=== PATIENT | male | born 1950 | race Hispanic/Latino ===

== ENCOUNTER 2018-05-29 11:21 | Inpatient (IN) | payer OTHER ==
--- OUTSIDE RECORDS SUMMARY | 2018-05-29 11:24 | XMS REPORT | Clinical Summary ---
:1950 Author Organization [facility] Address [address] [place] [address] Care Team Providers Name Role Phone Arsh Stokes BrittanyClarice GUEVARA Primary Care Provider Allergies Active Allergy Reactions Severity Noted Date Comments No Known Drug Allergies 08/25/2015 Medications Medication Sig Dispensed Refills Start Date End Date Status furosemide (LASIX) Take 40 mg by 0 Active 40 MG tablet mouth 2 (two) times a day. VIT D3-VIT Take 1 tablet 0 Active [id number] by mouth ORAL daily. levothyroxine Take 100 mcg 0 Active (SYNTHROID, by mouth every LEVOTHROID) 100 MCG morning. tablet atorvastatin Take 80 mg by 0 Active (LIPITOR) 80 MG mouth daily. tablet terazosin (HYTRIN) Take 5 mg by 0 Active 5 MG capsule mouth nightly. metoprolol Take 25 mg by 0 Active succinate XL mouth nightly. (TOPROL-XL) 25 mg 24 hr tablet pantoprazole Take 40 mg by 0 Active (PROTONIX) 40 MG EC mouth daily. tablet calcitriol Take 0.25 mcg 0 Active (ROCALTROL) 0.25 by mouth MCG capsule daily. Given in dialysis sevelamer (RENVELA) Take 800 mg by 0 Active 800 mg tablet mouth 3 (three) times a day with meals. insulin detemir Inject 16 0 Active U-100 (LEVEMIR) 100 Units under unit/mL injection the skin nightly. colchicine 0.6 mg Take 0.6 mg by 0 Active tablet mouth daily. CALCIUM ACETATE Take 1 tablet 0 09/09/2017 Discontinued ORAL by mouth 3 (three) times a day. FERROUS SULFATE Take 1 tablet 0 09/09/2017 Discontinued ORAL by mouth daily. Given at dialysis lisinopril Take 10 mg by 0 08/10/2017 Discontinued (PRINIVIL,ZESTRIL) mouth daily. 5 MG tablet SODIUM BICARBONATE Take 650 mg by mouth 3 (three) times a day. 650 mg tablet 0 09/09/2017 Discontinued ORAL HYDRALAZINE HCL Take 100 mg by 0 11/16/2017 Discontinued (HYDRALAZINE ORAL) mouth 3 (three) times a day. insulin detemir Inject 16 0 08/10/2017 Discontinued (LEVEMIR) 100 Units under unit/mL injection the skin every morning. cyanocobalamin, Place 5,000 0 11/16/2017 Discontinued vitamin B-12, mcg under the (VITAMIN B-12) tongue daily. 5,000 mcg tablet, sublingual acetaminophen-codei Take 1 tablet 40 tablet 0 09/09/2017 09/23/2017 ne (TYLENOL WITH by mouth every CODEINE #3) 300-30 4 (four) hours mg per tablet as needed for moderate pain for up to 14 days. acetaminophen-codei Take 1 tablet 40 tablet 0 12/10/2017 12/20/2017 ne (TYLENOL WITH by mouth every CODEINE #3) 300-30 6 (six) hours mg per tablet as needed for moderate pain for up to 10 days. acetaminophen-codei Take 1 tablet 30 tablet 0 12/12/2017 12/19/2017 ne (TYLENOL WITH by mouth every CODEINE #3) 300-30 6 (six) hours mg per tablet as needed for moderate pain for up to 7 days. Active Problems Problem Noted Date Type 2 diabetes mellitus with chronic kidney disease on chronic dialysis, 10/2017 with long-term current use of insulin End stage renal disease 10/28/2017 Overview: Added automatically from request for surgery [id number] ESRD (end stage renal disease) 2018 MWF 08/10/2017 Last Assessment & Plan: N. Patient with access needs. We gave the patient our kidney failure information sheet and discussed with them in general transplant vs. PD vs. hemodialysis. We discussed catheters vs. grafts vs. fistula s and used the informational posters to better explain the differences. We explained our general preference for fistulas because of decreased infections and increased longevity. We discussed operative complications including bleeding, thrombosis, failure of the access, swelling , steal syndrome, and need for additional procedures. Vein mapping reviewed by me. Plan for L arm AVF. Hypertension 08/10/2017 Bradycardia 08/10/2017 Overview: heart rate in 40- 50s Hypothyroidism 08/10/2017 Encounters Date Type Specialty Care Team Description 01/11/2018 Office Visit Cardiovascular Corey, ESRD (end stage Arnold, DISPENSARY TECHNICIAN renal disease) 2017 MWF (Primary Dx) 12/30/2017 Documentation Transplant Sumeet, Consent Forms Janelle (Scanned Consent For Kidney Transplant Evaluation, Pre Txp Education & ARUNA forms in Media. 12-23-2017) 12/23/2017 Hospital Encounter Transplant Kelsie Sparks MD 12/23/2017 Hospital Encounter Transplant Asked, No Pcp Grayson Mera MD 12/23/2017 Hospital Encounter Transplant Asked, No Pcp Grayson Mera MD 12/23/2017 Hospital Encounter Transplant Asked, No Pcp ESRD (end stage Grayson Mera renal disease) MD Cam (Primary Dx) 12/09/2017 Surgery Vascular Surgery Ramya Poole LEFT SECOND STAGE MD Sander BASILIC VEIN FISTULA TRANSPOSITION 12/09/2017 Anesthesia Event Vascular Surgery Jane Chandler MD 12/09/2017 Hospital Encounter General Internal Ramya Poole End stage renal - Medicine MD Sander disease 12/12/2017 12/09/2017 Hospital Encounter Radiology Ramya Poole ESRD (end stage MD Sander renal disease) 11/25/2017 Orders Only Cardiovascular Ramya Poole End stage renal MD Sander disease (Primary Dx) 11/16/2017 Telephone Transplant Teressa Loco, Referral - Kidney MA Txp (Re-Referral) 10/28/2017 Prep for Surgery Cardiovascular Ramya Poole End stage renal MD Sander disease (Primary Dx) 10/12/2017 Office Visit Cardiovascular JaimeAngyJewel, ESRD (end stage Arnold, DISPENSARY TECHNICIAN renal disease) 2017 MWF (Primary Dx) 09/09/2017 Anesthesia Event Vascular Surgery Charity Monzon MD 09/09/2017 Surgery Vascular Surgery Ramya Poole CREATION OF LEFT MD Sander ARM AV FISTULA 1st stage 09/09/2017 Hospital Encounter Vascular Surgery Ramya Poole ESRD (end stage MD Sander renal disease) 08/10/2017 Office Visit Cardiovascular Ramya Poole ESRD (end stage MD Sander renal disease) 2017 MWF (Primary Dx) 08/10/2017 Prep for Surgery Cardiovascular Estephania Chairez ESRD (end stage renal disease) (Primary Dx) 06/28/2017 Orders Only Cardiovascular Estephania Chairez ESRD (end stage renal disease) (Primary Dx) after 05/28/2017 Social History Tobacco Use Types Packs/Day Years Used Date Former Smoker Cigarettes 1 2 Quit: 1986 Smokeless Tobacco: Never Used Comments: quit 1987 Alcohol Use Drinks/Week oz/Week Comments No quit 5-6 yrs ago Sex Assigned at Date Recorded Not on file Job Start Date Occupation Industry Not on file Not on file Not on file Travel History Travel Start Travel End No recent travel history available. Last Filed Vital Signs Vital Sign Reading Time Taken Blood Pressure 104/47 01/11/2018 9:39 AM CDT Pulse 39 01/11/2018 9:39 AM CDT Temperature 36.9 C (98.4 F) 01/11/2018 9:39 AM CDT Respiratory Rate 16 12/23/2017 7:39 AM CDT Oxygen Saturation 98% 12/23/2017 7:39 AM CDT Inhaled Oxygen Concentration - - Weight 90.7 kg (200 lb) 01/11/2018 9:39 AM CDT Height 182.9 cm (6') 01/11/2018 9:39 AM CDT Body Mass Index 27.12 01/11/2018 9:39 AM CDT Plan of Treatment Health Maintenance Due Date Last Done Comments DIABETIC RETINAL EYE EXAM 1950 DIABETIC FOOT EXAM 1959 COLON CANCER SCREENING 1999 SHINGLES VACCINES (1 of 2) 1999 PNEUMOCOCCAL POLYSACCHARIDE VACCINE AGE 65 AND OVER 2014 PNEUMOCOCCAL-13 2014 INFLUENZA VACCINE 11/10/2017 Implants Implanted Type Area Sapphire Stylus Grinder Device Shelf Model / Identifier Expiration Serial / Date Lot Clip Ligtng Weck Hemoclip Plus W/ Tape Ti [facility] - [id number] Medical Left: TELEFLEX MEDICAL 04/06/2022 [id number] / Implanted: Qty: 1 on 09/09/2017 by Ramya Poole MD Clips for Arm, / Internal Use Upper [id number] Clip Ligtng Weck Hemoclip Plus W/ Tape Ti - [id number] Medical Left: WECK CLOSURE 05/03/2022 [id number] / Implanted: Qty: 2 on 09/09/2017 by Ramya Poole MD Clips for Arm, SYSTEMS / Internal Use Upper 05/03/2022 Clip Ligtng Weck Hemoclip Plus W/ Tape Ti - [id number] Medical Left: WECK CLOSURE 05/03/2022 [id number] / Implanted: Qty: 2 on 12/09/2017 by Ramya Poole MD Clips for Arm, SYSTEMS / Internal Use Upper [id number] Clip Ligtng Weck Hemoclip Plus W/ Tape Ti [facility] - [id number] Medical Left: TELEFLEX MEDICAL 09/28/2022 [id number] / Implanted: Qty: 2 on 12/09/2017 by Ramya Poole MD Clips for Arm, / Internal Use Upper [id number] Procedures Procedure Name Priority Date/Time Associated Comments Diagnosis ZZESTIMATED GFR STAT 12/12/2017 5:45 Results for this AM CDT procedure are in the results section. HC COMPLETE BLD COUNT STAT 12/12/2017 5:45 Results for this W/AUTO DIFF AM CDT procedure are in the results section. BASIC METABOLIC PANEL STAT 12/12/2017 5:45 Results for this AM CDT procedure are in the results section. POC GLUCOSE Routine 12/12/2017 5:43 Results for this AM CDT procedure are in the results section. POC GLUCOSE Routine 12/11/2017 8:48 Results for this PM CDT procedure are in the results section. POC GLUCOSE Routine 12/11/2017 5:21 Results for this PM CDT procedure are in the results section. POC GLUCOSE Routine 12/11/2017 12:20 Results for this PM CDT procedure are in the results section. POC GLUCOSE Routine 12/11/2017 7:49 Results for this AM CDT procedure are in the results section. POC GLUCOSE Routine 12/10/2017 9:17 Results for this PM CDT procedure are in the results section. POC GLUCOSE Routine 12/10/2017 5:33 Results for this PM CDT procedure are in the results section. POC GLUCOSE Routine 12/10/2017 1:02 Results for this PM CDT procedure are in the results section. POC GLUCOSE Routine 12/10/2017 11:55 Results for this AM CDT procedure are in the results section. POC GLUCOSE Routine 12/10/2017 11:37 Results for this AM CDT procedure are in the results section. ZZESTIMATED GFR STAT 12/10/2017 8:10 Results for this AM CDT procedure are in the results section. BASIC METABOLIC PANEL STAT 12/10/2017 8:10 Results for this AM CDT procedure are in the results section. HEPATITIS B SURFACE STAT 12/10/2017 8:10 Results for this ANTIGEN AM CDT procedure are in the results section. HC COMPLETE BLD COUNT STAT 12/10/2017 8:10 Results for this W/AUTO DIFF AM CDT procedure are in the results section. HEMODIALYSIS Routine 12/10/2017 12:06 AM CDT POC GLUCOSE Routine 12/09/2017 10:08 Results for this PM CDT procedure are in the results section. POC GLUCOSE Routine 12/09/2017 4:57 Results for this PM CDT procedure are in the results section. OR FL < 1 HOUR Routine 12/09/2017 4:00 ESRD (end stage Results for this PM CDT renal disease) procedure are in the results section. TRANSPOSITION, VEIN, 12/09/2017 3:00 End stage renal BASILIC, SECOND OF 2 PM CDT disease STAGES Case Notes POSSIBLE EXTENDED RECOVERY NEEDED Special Needs POSSIBLE EXTENDED RECOVERY NEEDED ANESTHESIA PERIPHERAL BLOCK Routine 12/09/2017 1:08 PM CDT Procedure Note - Jane Chandler MD - 12/09/2017 1:08 PM CDT Peripheral Block Performed by: JANE CHANDLER Authorized by: JANE CHANDLER Patient Location: Pre-op Start Time: 12/09/2017 1:11 PM End Time: 12/09/2017 1:20 PM Reason for Block: at surgeon's request Staff: Anesthesiologist: JANE CHANDLER Resident/FOOD AND BEVERAGE ASSOCIATE/AA: DONNA HOOD Performed by: Anesthesiologist Preprocedure: patient identified, IV checked, site and side verified, risks and benefits discussed, procedure verified, surgical consent complete, patient position confirmed, monitors and equipment checked, pre-op evaluation complete and site marked Time Out Performed: 12/09/2017 1:10 PM Peripheral Nerve Block: Patient Position: Sitting Prep: ChloraPrep Monitoring: Blood pressure monitoring, continuous pulse oximetry and heart rate Block Type: Brachial plexus and supraclavicular Laterality: Left Injection Technique: Single injection Procedures: ultrasound guided and nerve stimulator Ultrasound documentation: Printed/placed in chart Local Infiltration (See MAR for details): Lidocaine Needle: Needle Type: Pajunk Needle Gauge: 22 G Needle Length: 8 cm Assessment: Injection Assessment: Visualized needle/local anesthetic surrounding nerve , visualized pertinent vascular structures and nerves, needle tip visualized at all times during injection of medication, intermittent aspiration during local anesthetic administration and no symptoms of intraneural/intravenous injection Paresthesia Pain: None Heart Rate Change: No Slow Fractionated Injection: Yes Block outcome: No apparent complications PROTHROMBIN TIME WITH INR, Routine 12/09/2017 11:47 AM CDT Results for this I-STAT procedure are in the results section. POC PANEL 4 Routine 12/09/2017 11:42 AM CDT POC PANEL 4 Routine 12/09/2017 11:16 AM CDT PROTHROMBIN TIME WITH INR, Routine 12/09/2017 11:12 AM CDT Results for this I-STAT procedure are in the results section. POC GLUCOSE Routine 09/09/2017 10:34 AM CDT ANESTHESIA PERIPHERAL BLOCK Routine 09/09/2017 8:00 AM CDT Procedure Note - Jane Chandler MD - 09/09/2017 8:00 AM CDT Peripheral Block Performed by: JANE CHANDLER Authorized by: JANE CHANDLER Start Time: 09/09/2017 8:04 AM End Time: 09/09/2017 8:08 AM Reason for Block: at surgeon's request Staff: Anesthesiologist: JANE CHANDLER Resident/FOOD AND BEVERAGE ASSOCIATE/AA: CHARITY MONZON Performed by: Resident/FOOD AND BEVERAGE ASSOCIATE/AA and anesthesiologist Preprocedure: patient identified, IV checked, site and side verified, risks and benefits discussed, procedure verified, surgical consent complete, patient position confirmed, monitors and equipment checked, pre-op evaluation complete and site marked Time Out Performed: 09/09/2017 7:59 AM Peripheral Nerve Block: Patient Position: Sitting Prep: ChloraPrep and patient draped Monitoring: Blood pressure monitoring and continuous pulse oximetry Block Type: Supraclavicular Laterality: Left Injection Technique: Single injection Procedures: ultrasound guided and nerve stimulator Ultrasound documentation: Printed/placed in chart Local Infiltration (See MAR for details): Ropivacaine Loss of Twitch: 35 mA Needle: Needle Type: Pajunk Needle Gauge: 22 G Needle Length: 8 cm Assessment: Injection Assessment: Visualized needle/local anesthetic surrounding nerve , visualized pertinent vascular structures and nerves, needle tip visualized at all times during injection of medication, no symptoms of intraneural/intravenous injection and intermittent aspiration during local anesthetic administration Paresthesia Pain: None Heart Rate Change: No Slow Fractionated Injection: Yes Block outcome: No apparent complications, patient comfortable and patient tolerated procedure well CREATION, AV FISTULA 09/09/2017 8:00 AM ESRD (end stage CDT renal disease) ECG 12-LEAD Routine 09/09/2017 7:25 AM Results for this CDT procedure are in the results section. POC PANEL 4 Routine 09/09/2017 7:10 AM Results for this CDT procedure are in the results section. XR CHEST 1 VW STAT 09/09/2017 6:30 AM Results for this PORTABLE CDT procedure are in the results section. US VEIN MAPPING Routine 08/10/2017 3:20 PM ESRD (end stage Results for this UPPER EXTREMITY CDT renal disease) procedure are in BILATERAL the results section. after 05/28/2017 Results Estimated GFR (12/12/2017 5:45 AM CDT)Only the most recent of2 resultswithin the time period is included. GFR Non Af Amer 9 (A) mL/min/1.73 m2 [facility] DEPARTMENT OF PATHOLOGY AND GENOMIC MEDICINE GFR Af Amer 11 (A) mL/min/1.73 m2 [facility] DEPARTMENT OF Comment: PATHOLOGY AND GENOMIC Chronic kidney disease: <60 mL/min/1.73m2 MEDICINE Kidney failure: <15 mL/min/1.73m2 The estimated GFR is calculated from the IDMS-traceable Modification of Diet in Renal Disease Equation. The accuracy of the calculation is poor when the creatinine is normal. Calculated values >90 mL/min/1.73m2 are not reported. This equation has not been validated in children (<18 years), women, the elderly (>70 years), or ethnic groups other than Caucasians and Americans. Specimen Plasma specimen Performing Organization Address City/State/Zipcode Phone Number [facility] DEPARTMENT OF PATHOLOGY AND [address] [place] [address] [place] CBC with platelet and differential (12/12/2017 5:45 AM CDT)Only the most recent of2 resultswithin the time period is included. WBC 6.96 4.50 - 11.00 k/uL [facility] DEPARTMENT OF PATHOLOGY AND GENOMIC MEDICINE RBC 2.91 (L) 4.40 - 6.00 m/uL [facility] DEPARTMENT OF PATHOLOGY AND GENOMIC MEDICINE HGB 9.2 (L) 14.0 - 18.0 g/dL [facility] DEPARTMENT OF PATHOLOGY AND GENOMIC MEDICINE HCT 29.4 (L) 41.0 - 51.0 % [facility] DEPARTMENT OF PATHOLOGY AND GENOMIC MEDICINE MCV 101.0 (H) 82.0 - 100.0 fL [facility] DEPARTMENT OF PATHOLOGY AND GENOMIC MEDICINE MCH 31.6 27.0 - 34.0 pg [facility] DEPARTMENT OF PATHOLOGY AND GENOMIC MEDICINE MCHC 31.3 31.0 - 37.0 g/dL [facility] DEPARTMENT OF PATHOLOGY AND GENOMIC MEDICINE RDW - SD 57.9 (H) 37.0 - 55.0 fL [facility] DEPARTMENT OF PATHOLOGY AND GENOMIC MEDICINE MPV 11.3 8.8 - 13.2 fL [facility] DEPARTMENT OF PATHOLOGY AND GENOMIC MEDICINE Platelet count 122 (L) 150 - 400 k/uL [facility] DEPARTMENT OF PATHOLOGY AND GENOMIC MEDICINE Nucleated RBC 0.00 /100 WBC [facility] DEPARTMENT OF PATHOLOGY AND GENOMIC MEDICINE Neutrophils 70.0 (H) 39.0 - 69.0 % [facility] DEPARTMENT OF PATHOLOGY AND GENOMIC MEDICINE Lymphocytes 13.2 (L) 25.0 - 45.0 % [facility] DEPARTMENT OF PATHOLOGY AND GENOMIC MEDICINE Monocytes 11.8 (H) 0.0 - 10.0 % [facility] DEPARTMENT OF PATHOLOGY AND GENOMIC MEDICINE Eosinophils 4.3 0.0 - 5.0 % [facility] DEPARTMENT OF PATHOLOGY AND GENOMIC MEDICINE Basophils 0.4 0.0 - 1.0 % [facility] DEPARTMENT OF PATHOLOGY AND GENOMIC MEDICINE Immature granulocytes 0.3Comment: 0.0 - 1.0 % [facility] DEPARTMENT OF "Immature PATHOLOGY AND GENOMIC granulocytes" MEDICINE (promyelocytes, myelocytes, metamyelocytes) Specimen Blood Performing Organization Address City/State/Zipcode Phone Number [facility] DEPARTMENT OF PATHOLOGY AND [address] [place] [address] GENOMIC MEDICINE Basic metabolic panel (12/12/2017 5:45 AM CDT)Only the most recent of2 resultswithin the time period is included. Sodium 139 135 - 148 mEq/L [facility] DEPARTMENT OF PATHOLOGY AND GENOMIC MEDICINE Potassium 4.1 3.5 - 5.0 mEq/L [facility] DEPARTMENT OF PATHOLOGY AND GENOMIC MEDICINE Chloride 98 98 - 112 mEq/L [facility] DEPARTMENT OF PATHOLOGY AND GENOMIC MEDICINE CO2 24 24 - 31 mEq/L [facility] DEPARTMENT OF PATHOLOGY AND GENOMIC MEDICINE Anion gap 17@ANIO (H) 7 - 15 mEq/L [facility] DEPARTMENT OF PATHOLOGY AND GENOMIC MEDICINE BUN 54 (H) 8 - 23 mg/dL [facility] DEPARTMENT OF PATHOLOGY AND GENOMIC MEDICINE Creatinine 6.1 (H) 0.7 - 1.2 mg/dL [facility] DEPARTMENT OF PATHOLOGY AND GENOMIC MEDICINE Glucose 95 65 - 99 mg/dL [facility] DEPARTMENT OF PATHOLOGY AND GENOMIC MEDICINE Calcium 8.9 8.8 - 10.2 mg/dL [facility] DEPARTMENT OF PATHOLOGY AND GENOMIC MEDICINE Specimen Plasma specimen Performing Organization Address City/[facility] Phone Number [facility] DEPARTMENT OF PATHOLOGY AND [address] [place] [address] [employer] MEDICINE POC glucose (12/12/2017 5:43 AM CDT)Only the most recent of13 resultswithin the time period is included. POC glucose 100 (H) 65 - 99 mg/dL [facility] DEPARTMENT OF PATHOLOGY Comment: AND GENOMIC MEDICINE [facility] Notified RN Meter ID: [id number] Nursing Home Director: Irene Rader Performing Organization Address [facility] Phone Number [facility] DEPARTMENT OF PATHOLOGY AND [address] [place] [address] Hepatitis B surface antigen (12/10/2017 8:10 AM CDT) Hepatitis B surface Ag Non-reactive Non-reactive [facility] DEPARTMENT OF PATHOLOGY AND GENOMIC MEDICINE Performing Organization Address [facility] Phone Number [facility] DEPARTMENT OF PATHOLOGY AND [address] [place] [address] OR [place] < 1 Hour (12/09/2017 4:00 PM CDT) Narrative Performed At IMPRESSION: C-arm fluoroscopy under one hour was provided in the OR for [facility] the referring physician. A radiologist was not present during the procedure. Refer to the Operative report issued by the performing provider for procedure details. Location: [place] [address] OR 2 Procedure: LEFT SECOND STAGE BASILIC VEIN FISTULA TRANSPOSITION Start: 1550 End: 1600 Fluoro Time: 49 sec Dose: 10.85 mGy Tech: SW Procedure Note Interface, Radiology Results Incoming - 12/10/2017 2:14 PM CDT IMPRESSION: C-arm fluoroscopy under one hour was provided in the OR for the referring physician. A radiologist was not present during the procedure. Refer to the Operative report issued by the performing provider for procedure details. Location: [place] [address] OR 2 Procedure: LEFT SECOND STAGE BASILIC VEIN FISTULA TRANSPOSITION Start: 1550 End: 1600 Fluoro Time: 49 sec Dose: 10.85 mGy Tech: JUANA Performing Organization Address City/[facility] Phone Number [facility] [address] [place] [phone] Prothrombin time with INR, I-Stat (12/09/2017 11:47 AM CDT)Only the most recent of2 resultswithin the time period is included. POC prothrombin time 15.5 (H) 11.0 - 14.5 sec [facility] DEPARTMENT OF PATHOLOGY AND GENOMIC MEDICINE POC INR 1.3 [facility] DEPARTMENT OF Comment: PATHOLOGY AND GENOMIC The International Normalized Ratio (INR) is a therapeutic MEDICINE monitoring tool for patients who are stable on oral vitamin K antagonist therapy. An INR of 2.0-3.0 is suggested for deep vein thrombosis/pulmonary embolism. An INR of 2.5-3.5 (high dose) is suggested for some patients with mechanical heart valves) Meter ID: [id number] Nursing Home Director: Cesar Mitchell Specimen Blood Performing Organization Address [facility] Phone Number [facility] DEPARTMENT OF PATHOLOGY AND [address] [place] [phone] GENOMIC MEDICINE POC panel 4 (12/09/2017 11:42 AM CDT)Only the most recent of3 resultswithin the time period is included. POC sodium 138 135 - 148 mmol/L [facility] DEPARTMENT OF PATHOLOGY AND GENOMIC MEDICINE POC potassium 3.8 3.5 - 5.0 mmol/L [facility] DEPARTMENT OF PATHOLOGY AND GENOMIC MEDICINE POC hematocrit 33 (L) 41 - 51 % [facility] DEPARTMENT OF PATHOLOGY AND Comment: GENOMIC MEDICINE Meter ID: [id number] Nursing Home Director: Cesar Mitchell POC glucose 112 (H) 65 - 99 mg/dL [facility] DEPARTMENT OF PATHOLOGY AND GENOMIC MEDICINE Performing Organization Address [facility] Phone Number [facility] DEPARTMENT PATHOLOGY AND [address] [place] [phone] [employer] MEDICINE ECG 12 lead (09/09/2017 7:25 AM CDT) Ventricular rate 46 [facility] MUSE Atrial rate 46 [facility] MUSE QRSD interval 128 [facility] MUSE QT interval 568 [facility] MUSE QTC interval 497 [facility] MUSE P axis 1 6 [facility] MUSE QRS axis 1 86 [facility] [facility] T wave axis 33 [facility] EKG impression Sinus bradycardia with 1st degree AV block with occasional premature ventricular complexes-Right bundle branch block-Nonspecific ST and T wave abnormality-Abnormal ECG-In automated comparison with ECG o [facility] f 30-JUL-2015 07:13,-Right bundle branch block is now present- 9 :09:15 PM Performing Organization Address [facility] Phone Number [facility] [address] [place] [address] XR Chest 1 Vw Portable (09/09/2017 6:30 AM CDT) Narrative Performed At EXAMINATION:XR CHEST 1 VW PORTABLE [facility] CLINICAL HISTORY:Pre-op COMPARISON:May 31 IMPRESSION: Lungs are clear The heart remains enlarged Diffuse calcified atherosclerotic vascular disease throughout the arterial structures. Degenerative changes are present throughout the bony structures without evidence of a suspicious focal lesion. No interval change in support lines [facility]-[id number] Procedure Note Interface, Radiology Results Incoming - 09/09/2017 7:02 AM CDT EXAMINATION: XR CHEST 1 VW PORTABLE CLINICAL HISTORY: Pre-op COMPARISON: May 31 IMPRESSION: Lungs are clear The heart remains enlarged Diffuse calcified atherosclerotic vascular disease throughout the arterial structures. Degenerative changes are present throughout the bony structures without evidence of a suspicious focal lesion. No interval change in support lines [facility]-[id number] Performing Organization Address [facility] Phone Number [facility] [address] [place] [address] PV vein mapping upper extremity (08/10/2017 3:20 PM CDT) Narrative Performed At [facility] Upper Extremity Vein Mapping Duplex Report [id number] [place], [place] Pat.Name:[facility] LOPEZ [facility][id number] .Date: 08/10/2017Refer.MD:RAMYA POOLE MD Exam Time: 8:56:00 AMStudy Type:UE Vein Mapping DOBAge:1950,67Y Sex: MALE Sonogrphr: Everardo Sara, RDMS, RVT CPT - 4: 18195 Echo Event ID:[id number] Order ID:[id number] Reason for Study:Pre-op vein mapping for AV fistula creation.History of non-functioning left arm AVF.Patient currently uses right chest catheter for dialysis and is right hand dominant. Race:C SUMMARY: DUPLEX SCAN OBSERVATIONS Right Left IJPatent Patent SubclavianPatent Patent AxillaryPatent Patent BrachialPatent Patent Cephalic, arm Not visualized Not visualized Cephalic, forearm Not visualized Not visualized Basilic, armPatent Patent Basilic, forearm Patent Patent Brachial artery Pressure 151/61 mmHg 155/65 mmHg PSV cm/sec 031341 Radial artery PSV cm/sec 46905 Ulnar artery PSV cm/sec 019906 RIGHT:There is normal compressibility and no evidence of echogenic material noted within the lumen of the visualized veins.Colorflow and Doppler signals demonstrate patency.The roland of the radial and ulnar arteries are echogenic. LEFT:There is normal compressibility and no evidence of echogenic material noted within the lumen of the visualized veins.Colorflow and Doppler signals demonstrate patency.The roland of the radial and ulnar arteries are echogenic.There is a thrombosed proximal and distal forearm radiocephalic AV fistula. PHYSICIAN INTERPRETATION 1.No evidence of acute deep venous thrombosis of the bilateral upper extremities. 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 3.See diagram for vein measurements. MEASUREMENTS: UEVEINS Right Cephalic Upper Arm Prox Cephalic Upper 0.17 cm Left Basilic Upper Arm Mid Basilic Upper A0.28 cm Right Basilic Upper Arm Mid Basilic Upper A0.32 cm Left Ulnar Artery Ulnar Artery AP0.22 cm Right Ulnar Artery Ulnar Artery AP0.15 cm Left Basilic Forearm Prox Basilic Forearm0.21 cm Right Basilic Forearm Prox Basilic Forearm0.22 cm Left Brachial Vein Antecube Brachial Vein A 0.4 cm Right Brachial Vein Antecube Brachial Vein A0.32 cm Right Basilic Wrist Basilic Wrist A0.28 cm Left Basilic Antecubital Basilic Antecub0.24 cm Right Basilic Antecubital Fossa Basilic Antecub0.28 cm Left Radial Artery Radial Artery A0.22 cm Right Radial Artery Radial Artery A0.24 cm Left Basilic Upper Arm Dist Basilic Upper A 0.3 cm Right Basilic Upper Arm Dist Basilic Upper A0.25 cm Left Brachial Artery Brachial Artery0.54 cm Right Brachial Artery Brachial Artery0.48 cm Right Basilic Forearm Mid Basilic Forearm0.22 cm Left Basilic Upper Arm Prox Basilic Upper A0.28 cm Right Basilic Upper Arm Prox Basilic Upper A0.27 cm GRAFT Ulnar A Dist 1 Ulnar A Dist 1146 cm/s Ulnar Dist Ulnar Dist PSV 118 cm/s Brachial A Dist Brachial A Dist 102 cm/s Radial A Dist Radial A Dist P93 cm/s Signed 08/10/2017 03:41 PM Robbie Hurley MD, RPVI Procedure Note Interface, Radiology Results In - 08/10/2017 3:42 PM CDT [facility] Upper Extremity Vein Mapping Duplex Report [id number] [id number] Pat.Name: MEKHI LOPEZ Pat.ID: [id number] .Date: 08/10/2017 Refer.MD: RAMYA POOLE MD Exam Time: 8:56:00 AM Study Type:UE Vein Mapping Age: 1 1950,67Y Sex: MALE Sonogrphr: Everardo Ruiz RDMS, RVT CPT - 4: [id number] Echo Event ID:[id number] Order ID: [id number] Reason for Study:Pre-op vein mapping for AV fistula creation. History of non-functioning left arm AVF. Patient currently uses right chest catheter for dialysis and is right hand dominant. Race: C SUMMARY: DUPLEX SCAN OBSERVATIONS Right Left IJ Patent Patent Subclavian Patent Patent Axillary Patent Patent Brachial Patent Patent Cephalic, arm Not visualized Not visualized Cephalic, forearm Not visualized Not visualized Basilic, arm Patent Patent Basilic, forearm Patent Patent Brachial artery Pressure 151/61 mmHg 155/65 mmHg PSV cm/sec 102 104 Radial artery PSV cm/sec 93 147 Ulnar artery PSV cm/sec 118 146 RIGHT: There is normal compressibility and no evidence of echogenic material noted within the lumen of the visualized veins. Colorflow and Doppler signals demonstrate patency. The roland of the radial and ulnar arteries are echogenic. LEFT: There is normal compressibility and no evidence of echogenic material noted within the lumen of the visualized veins. Colorflow and Doppler signals demonstrate patency. The roland of the radial and ulnar arteries are echogenic. There is a thrombosed proximal and distal forearm radiocephalic AV fistula. PHYSICIAN INTERPRETATION 1. No evidence of acute deep venous thrombosis of the bilateral upper extremities. 2. 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 3. See diagram for vein measurements. MEASUREMENTS: UEVEINS Right Cephalic Upper Arm Prox Cephalic Upper 0.17 cm Left Basilic Upper Arm Mid Basilic Upper A 0.28 cm Right Basilic Upper Arm Mid Basilic Upper A 0.32 cm Left Ulnar Artery Ulnar Artery AP 0.22 cm Right Ulnar Artery Ulnar Artery AP 0.15 cm Left Basilic Forearm Prox Basilic Forearm 0.21 cm Right Basilic Forearm Prox Basilic Forearm 0.22 cm Left Brachial Vein Antecube Brachial Vein A 0.4 cm Right Brachial Vein Antecube Brachial Vein A 0.32 cm Right Basilic Wrist Basilic Wrist A 0.28 cm Left Basilic Antecubital Basilic Antecub 0.24 cm Right Basilic Antecubital Fossa Basilic Antecub 0.28 cm Left Radial Artery Radial Artery A 0.22 cm Right Radial Artery Radial Artery A 0.24 cm Left Basilic Upper Arm Dist Basilic Upper A 0.3 cm Right Basilic Upper Arm Dist Basilic Upper A 0.25 cm Left Brachial Artery Brachial Artery 0.54 cm Right Brachial Artery Brachial Artery 0.48 cm Right Basilic Forearm Mid Basilic Forearm 0.22 cm Left Basilic Upper Arm Prox Basilic Upper A 0.28 cm Right Basilic Upper Arm Prox Basilic Upper A 0.27 cm GRAFT Ulnar A Dist 1 Ulnar A Dist 1 146 cm/s Ulnar Dist Ulnar Dist PSV 118 cm/s Brachial A Dist Brachial A Dist 102 cm/s Radial A Dist Radial A Dist P 93 cm/s Signed 08/10/2017 03:41 PM Robbie Hurley MD, RPVI Performing Organization Address City/State/Zipcode Phone Number [facility] [address] [place] [address] after 05/28/2017 Insurance Payer Benefit Plan / Group Subscriber ID Type Phone Address MEDICARE MEDICARE PART A AND B xxxxxxxxxx Medicare [place], [place] [employer] INDEMNITY xxxxxxxxx Indemnity Advance Directives Patient has advance care planning documents on file. For more information, please contact:Simeon [address] [place] [address]
[2018-05-29] MEDS ORDERED: HYDROCODONE/APAP 10/325 TAB ONE ×2 (13:02→18:54)
--- NOTE | 2018-05-29 13:24 | RAD REPORT ---
EXAM DESCRIPTION: CT - Stone Protocol - 05/29/2018 1:08 pm CLINICAL HISTORY: Abdominal pain. Lower abdominal pain. COMPARISON: None. TECHNIQUE: Computed axial tomography of the abdomen pelvis was obtained without oral or IV contrast. Lack of IV and oral contrast limits evaluation of solid organs, bowel, and vessels. Coronal reformat jazzy images were obtained and reviewed. All CT scans are performed using dose optimization technique as appropriate and may include automated exposure control or mA/KV adjustment according to patient size. FINDINGS: A renal calculus is not seen. An ureteral calculus is not noted. A bladder calculus is not present. Bladder wall thickening may be secondary to incomplete distention, outlet obstruction or cy stitis. Prostate gland is mildly enlarged The liver, spleen, pancreas and adrenals appear grossly normal There is no evidence of diverticulitis. The appendix appears normal Left scrotal skin thickening. 2.8 centimeter structure is present within the inferior left scrotum Small inguinal hernias Small umbilical hernia contains fat. Mild stranding within the fat may indicate inflammation IMPRESSION: Negative for a genitourinary calculus Left scrotal skin thickening 2.8 centimeter structure within the inferior left scrotum is incompletely evaluated on this exam. It may be part of the left testicle or extratesticular. Ultrasound recommended
[2018-05-29 13:52] LABS: Absolute Lymphocytes (CBC) 1.2 K/uL (0.7-4.9); Absolute Monocytes 0.7 K/uL (0.1-1.3); Absolute Neutrophil 5.4 K/uL (1.8-8.0); Eosinophils % 2.8 % (0-4.4); Hematocrit 29.3 % (39.6-49.0); Lymphocytes % 15.4 % (15.3-44.8); MPV 8.4 fL (7.6-11.3); Monocytes % 9.7 % (3.3-12.3); RBC Red Blood Cell Count 2.83 M/uL (4.33-5.43)
[2018-05-29 14:17] LABS: Potassium 4.1 mmol/L (3.5-5.1)
--- NOTE | 2018-05-29 15:58 | RAD REPORT ---
EXAM DESCRIPTION: US - Scrotum Testicles - 05/29/2018 2:43 pm CLINICAL HISTORY: Scrotal pain COMPARISON: None FINDINGS: Right testicle measures 3 x 2.3 x 2.2 centimeters. Echotexture is homogeneous. Normal bloo d flow. A 9 millimeter right spermatocele. 7 millimeter calcification within the right scrotum is shantanu ign. Left testicle measures 2.4 x 1.6 x 2.4 centimeters. Echotexture is homogeneous. Increased blood flow to the left testicle and left epididymis. 3.3 centimeter complex loculated left hydrocele compresses the left testicle Low scrotal skin thickening IMPRESSION: Left orchitis/epididymitis 3.3 centimeter complex loculated left hydrocele
--- NOTE | 2018-05-29 16:47 | EDPHYS ---
Physician Documentation [facility] Name: Glenn Barboza Age: 67 yrs Sex: Male : 1950 Arrival Date: 05/29/2018 Time: 11:23 Bed 19 Private MD: Bin Michelle ED Physician Torrey Cote HPI: 05/29 17:09 This 67 yrs old Male presents to ER via Wheelchair with complaints of Urinary gs Problem, Low Back Pain. 17:09 The patient presents with pain that is acute. The symptoms are located in the low back. gs The pain does not radiate. Onset: The symptoms/episode began/occurred 3 day(s) ago. Modifying factors: The patient symptoms are alleviated by nothing, the patient symptoms are aggravated by bending. Associated signs and symptoms: Pertinent negatives: hematuria, incontinence, numbness, tingling, urinary retention. Severity of symptoms: At their worst the symptoms were moderate, in the emergency department the symptoms are unchanged. The patient has experienced similar episodes in the past, a few times. Historical: - Allergies: 11:50 No Known Allergies; la1 - PMHx: 11:50 Diabetes; Hyperlipidemia; Hypertension; Renal Disease; la1 - Immunization history:: Adult Immunizations up to date. - Social history:: Smoking status: Patient/guardian denies using tobacco. - Ebola Screening: : No symptoms or risks identified at this time. ROS: 17:09 : Positive for testicular pain gs 17:09 All other systems are negative. Exam: 17:09 Head/Face: Normocephalic, atraumatic. Eyes: Pupils equal round and reactive to light, gs extra-ocular motions intact. Lids and lashes normal. Conjunctiva and sclera are non-icteric and not injected. Cornea within normal limits. Periorbital areas with no swelling, redness, or edema. ENT: Nares patent. No nasal discharge, no septal abnormalities noted. Tympanic membranes are normal and external auditory canals are clear. Oropharynx with no redness, swelling, or masses, exudates, or evidence of obstruction, uvula midline. Mucous membranes moist. 17:09 Respiratory: Lungs have equal breath sounds bilaterally, clear to auscultation and percussion. No rales, rhonchi or wheezes noted. No increased work of breathing, no retractions or nasal flaring. Abdomen/GI: Soft, non-tender, with normal bowel sounds. No distension or tympany. No guarding or rebound. No evidence of tenderness throughout. Skin: Warm, dry with normal turgor. Normal color with no rashes, no lesions, and no evidence of cellulitis. MS/ Extremity: Pulses equal, no cyanosis. Neurovascular intact. Full, normal range of motion. Neuro: Awake and alert, GCS 15, oriented to person, place, time, and situation. Cranial nerves II-XII grossly intact. Motor strength 5/5 in all extremities. Sensory grossly intact. Cerebellar exam normal. Normal gait. 17:09 Constitutional: The patient appears alert, awake. 17:09 Cardiovascular: Rate: bradycardic, Rhythm: regular, Pulses: no pulse deficits are appreciated. 17:09 : Male external genitalia: swelling, of the left testicle is noted, that is moderate, tenderness, of the left testicle is noted. Vital Signs: 11:53 Pulse 79; Resp 18; Temp 97.8; Pulse Ox 98% on R/A; Weight 86.18 kg; Height 6 ft. la1 (182.88 cm); 11:54 BP 133 / 34; la1 13:40 BP 140 / 48; Pulse 46; Resp 16; Pulse Ox 99% on R/A; tw2 14:44 BP 107 / 36; Pulse 47; Resp 15; Pulse Ox 97% on R/A; tw2 15:46 BP 132 / 50; Pulse 40; Resp 18; Pulse Ox 96% on R/A; tw2 16:32 BP 143 / 49; Pulse 47; Resp 13; Pulse Ox 99% on R/A; tw2 17:33 BP 152 / 50; Pulse 47; Resp 16; Pulse Ox 97% on R/A; tw2 18:23 BP 150 / 47; Pulse 50; Resp 16; Pulse Ox 98% on R/A; tw2 19:12 BP 158 / 43; Pulse 46; Resp 15 S; Pulse Ox 98% on R/A; jd3 19:58 BP 136 / 50; Pulse 49; Resp 15 S; Pulse Ox 98% on R/A; jd3 11:53 Body Mass Index 25.77 (86.18 kg, 182.88 cm) la1 13:40 pts son states this is his normal low HR, provider notified. tw2 15:46 provider aware tw2 MDM: 12:33 Patient medically screened. 17:09 Differential diagnosis: UTI, abscess,orchitis, cellulitis. Physician consultation: Mary Alexander MD regarding patient's condition, and will see patient in inpatient room, would like admission per Dr. Indiana De Santiago MD. 05/29 12:38 Order name: CBC with Diff; Complete Time: 14:35 05/29 12:38 Order name: Basic Metabolic Panel; Complete Time: 14:35 05/29 12:38 Order name: CT Stone Protocol; Complete Time: 13:36 05/29 13:37 Order name: US Scrotum Testicles; Complete Time: 16:00 05/29 16:41 Order name: Blood Culture* 05/29 12:38 Order name: Urine Dipstick-Ancillary (obtain specimen); Complete Time: 12:38 Administered Medications: 12:56 Drug: Palmyra 10 mg-325 mg 1 tabs Route: PO; tw2 16:42 Follow up: Response: No adverse reaction; Pain is decreased tw2 17:08 Drug: Rocephin - (cefTRIAXone) 1 grams {Note: IVP available only from pharmacy.} Route: tw2 IVPB; Infused Over: 5 mins; Site: right forearm; 17:13 Follow up: Response: No adverse reaction; IV Status: Completed infusion tw2 18:46 Drug: Palmyra 10 mg-325 mg 1 tabs Route: PO; tw2 18:49 Follow up: Response: No adverse reaction tw2 Disposition: 05/29/18 16:46 Hospitalization ordered by Indiana De Santiago for Observation. Preliminary diagnosis is Orchitis. - Bed requested for Telemetry/MedSurg (observation). - Status is Observation. jd3 - Condition is Stable. - Problem is an ongoing problem. - Symptoms are unchanged. UTI on Admission? Yes Signatures: Dispatcher [employer] EDXochitl Veronica RN RN iw Freddie Wilkinson RN RN la1 Alison Reagan RN RN tw2 Torrey Cote MD MD Jorge Carlton RN RN jd3 Corrections: (The following items were deleted from the chart) 18:50 16:46 Hospitalization Ordered by Indiana De Santiago MD for Observation. Preliminary diagnosis iw is Orchitis. Bed requested for Telemetry/MedSurg (observation). Status is Observation. Condition is Stable. Problem is an ongoing problem. Symptoms are unchanged. UTI on Admission? Yes. 20:18 18:50 05/29/2018 16:46 Hospitalization Ordered by Indiana De Santiago MD for Observation. jd3 Preliminary diagnosis is Orchitis. Bed requested for Telemetry/MedSurg (observation). Status is Observation. Condition is Stable. Problem is an ongoing problem. Symptoms are unchanged. UTI on Admission? Yes. iw
--- NOTE | 2018-05-29 16:47 | ER ---
Nurse's Notes [facility] Name: Glenn Barboza Age: 67 yrs Sex: Male : 1950 Arrival Date: 05/29/2018 Time: 11:23 Bed 19 Private MD: Bin Michelle Diagnosis: Orchitis Presentation: 05/29 11:50 Presenting complaint: Patient states: I have been on augmentin for a UTI which I will la1 finish today from Dr. Alexander, my left testicle is swollen like it was went I went to see him but I am getting back pain that comes around to the front. Transition of care: patient was not received from another setting of care. Onset of symptoms was May 29, 2018. Risk Assessment: Do you want to hurt yourself or someone else? Patient reports no desire to harm self or others. Initial Sepsis Screen: Does the patient meet any 2 criteria? No. Patient's initial sepsis screen is negative. Does the patient have a suspected source of infection? No. Patient's initial sepsis screen is negative. Care prior to arrival: None. 11:50 Method Of Arrival: Wheelchair la1 11:50 Acuity: TYSHAWN 3 la1 Historical: - Allergies: 11:50 No Known Allergies; la1 - PMHx: 11:50 Diabetes; Hyperlipidemia; Hypertension; Renal Disease; la1 - Immunization history:: Adult Immunizations up to date. - Social history:: Smoking status: Patient/guardian denies using tobacco. - Ebola Screening: : No symptoms or risks identified at this time. Screenin:30 Abuse screen: Denies threats or abuse. Nutritional screening: No deficits noted. tw2 Tuberculosis screening: No symptoms or risk factors identified. Fall Risk None identified. Assessment: 12:40 General: Appears in no apparent distress. uncomfortable, Behavior is calm, cooperative, em Denies fever. Pain: Complains of pain in lumbar area and groin Pain currently is 10 out of 10 on a pain scale. Pain began suddenly. Neuro: Level of Consciousness is awake, alert, obeys commands, Oriented to person, place, time, situation. Cardiovascular: Patient's skin is warm and dry. Respiratory: Airway is patent Respiratory effort is Respiratory pattern is regular, symmetrical. GI: Abdomen is flat, Patient currently denies nausea, vomiting. : Reports finished ABX for UTI Denies burning with urination. Derm: Skin is intact, Skin is jaundiced. Musculoskeletal: Range of motion: intact in all extremities. 13:44 Reassessment: Patient appears in no apparent distress at this time. No changes from tw2 previously documented assessment. Patient and/or family updated on plan of care and expected duration. Pain level reassessed. Patient is alert, oriented x 3, equal unlabored respirations, skin warm/dry/pink. 14:44 Reassessment: Patient appears in no apparent distress at this time. No changes from tw2 previously documented assessment. Patient and/or family updated on plan of care and expected duration. Pain level reassessed. Patient is alert, oriented x 3, equal unlabored respirations, skin warm/dry/pink. 15:45 Reassessment: Patient appears in no apparent distress at this time. No changes from tw2 previously documented assessment. Patient and/or family updated on plan of care and expected duration. Pain level reassessed. Patient is alert, oriented x 3, equal unlabored respirations, skin warm/dry/pink. 16:32 Reassessment: Patient appears in no apparent distress at this time. No changes from tw2 previously documented assessment. Patient and/or family updated on plan of care and expected duration. Pain level reassessed. Patient is alert, oriented x 3, equal unlabored respirations, skin warm/dry/pink. 17:33 Reassessment: Patient appears in no apparent distress at this time. No changes from tw2 previously documented assessment. Patient and/or family updated on plan of care and expected duration. Pain level reassessed. Patient is alert, oriented x 3, equal unlabored respirations, skin warm/dry/pink. 18:23 Reassessment: Patient appears in no apparent distress at this time. No changes from tw2 previously documented assessment. Patient and/or family updated on plan of care and expected duration. Pain level reassessed. Patient is alert, oriented x 3, equal unlabored respirations, skin warm/dry/pink. 19:12 Reassessment: Patient appears in no apparent distress at this time. Patient and/or jd3 family updated on plan of care and expected duration. Pain level reassessed. Patient is alert, oriented x 3, equal unlabored respirations, skin warm/dry/pink. 19:58 Reassessment: Patient appears in no apparent distress at this time. Patient and/or jd3 family updated on plan of care and expected duration. Pain level reassessed. Patient is alert, oriented x 3, equal unlabored respirations, skin warm/dry/pink. Vital Signs: 11:53 Pulse 79; Resp 18; Temp 97.8; Pulse Ox 98% on R/A; Weight 86.18 kg; Height 6 ft. la1 (182.88 cm); 11:54 BP 133 / 34; la1 13:40 BP 140 / 48; Pulse 46; Resp 16; Pulse Ox 99% on R/A; tw2 14:44 BP 107 / 36; Pulse 47; Resp 15; Pulse Ox 97% on R/A; tw2 15:46 BP 132 / 50; Pulse 40; Resp 18; Pulse Ox 96% on R/A; tw2 16:32 BP 143 / 49; Pulse 47; Resp 13; Pulse Ox 99% on R/A; tw2 17:33 BP 152 / 50; Pulse 47; Resp 16; Pulse Ox 97% on R/A; tw2 18:23 BP 150 / 47; Pulse 50; Resp 16; Pulse Ox 98% on R/A; tw2 19:12 BP 158 / 43; Pulse 46; Resp 15 S; Pulse Ox 98% on R/A; jd3 19:58 BP 136 / 50; Pulse 49; Resp 15 S; Pulse Ox 98% on R/A; jd3 11:53 Body Mass Index 25.77 (86.18 kg, 182.88 cm) la1 13:40 pts son states this is his normal low HR, provider notified. tw2 15:46 provider aware tw2 ED Course: 11:23 Patient arrived in ED. rg4 11:24 Bin Michelle MD is Private Physician. rg4 11:50 Arm band placed on left wrist. la1 11:51 Triage completed. la1 12:20 Urine collected: clean catch specimen, clear, ryan colored, Amount Voided: 50mL. jp3 12:30 Torrey Cote MD is Attending Physician. gs 12:35 Mike Travis LVN is Primary Nurse. em 12:45 Placed in gown. Bed in low position. Call light in reach. Adult w/ patient. Pulse ox tw2 on. NIBP on. 12:50 Primary Nurse role handed off by Mike Travis LVN tw2 12:50 Alison Reagan, [place] is Primary Nurse. tw2 13:06 CT completed. Patient tolerated procedure well. Patient moved to CT via stretcher. kw1 Patient moved back from CT. 13:12 CT Stone Protocol In Process Unspecified. EDMS 13:26 Missed attempt(s): 22 gauge in right hand. Bleeding controlled, band aid applied, tw2 catheter tip intact. 13:30 Inserted saline lock: 22 gauge in right forearm, using aseptic technique. ,using tw2 aseptic technique. per Ira Morocho Blood collected. 14:43 Ultrasound completed. Patient tolerated well. sg3 14:44 US Scrotum Testicles In Process Unspecified. EDMS 16:43 [place] De Santiago MD is Hospitalizing Provider. gs 17:05 Blood Culture* Sent. tw2 19:00 Report given to [place] Donohue. tw2 19:13 No provider procedures requiring assistance completed. Patient admitted, IV remains in jd3 place. 19:40 Primary Nurse role handed off by Alison Reagan RN ed1 20:14 Jorge Carlton RN is Primary Nurse. jd3 Administered Medications: 12:56 Drug: [place] 10 mg-325 mg 1 tabs Route: PO; tw2 16:42 Follow up: Response: No adverse reaction; Pain is decreased tw2 17:08 Drug: Rocephin - (cefTRIAXone) 1 grams {Note: IVP available only from pharmacy.} Route: tw2 IVPB; Infused Over: 5 mins; Site: right forearm; 17:13 Follow up: Response: No adverse reaction; IV Status: Completed infusion tw2 18:46 Drug: [place] 10 mg-325 mg 1 tabs Route: PO; tw2 18:49 Follow up: Response: No adverse reaction tw2 Outcome: 16:46 Decision to Hospitalize by Provider. gs 19:59 Admitted to Med/surg accompanied by [facility], via wheelchair, room 403, with chart, Report jd3 called to Margot BE 19:59 Condition: stable 19:59 Instructed on the need for admit, Demonstrated understanding of instructions. 20:18 Patient left the ED. jd3 Signatures: Dispatcher [employer] EDKY Mike Travis, DILLAN HERNANDEZN Myriam Mcmanus RN [place] ed1 Freddie Wilkinson RN RN la1 Alison Reagan RN RN tw2 Aubree Sarmiento rg4 Torrey Cote MD MD gs Jorge Carlton RN RN jd3 [place] Hdez kw1 Mona Muñiz sg3 [place] Coker jp3
[2018-05-29] MEDS ORDERED: CEFTRIAXONE/SWI 1gm 1 GM/10 ML SYR ONE (16:56)
--- NOTE | 2018-05-29 18:17 | P.HP ---
Certification for Inpatient With expected LOS: >2 Midnights Practitioner: I am a practitioner with admitting privileges, knowledge of patient current condition, hospital course, and medical plan of care. Services: Services provided to patient in accordance with Admission requirements found in Title 42 Section 412.3 of the Code of Federal Regulations Patient History Date of Service: 05/29/18 Reason for admission: orchitis History of Present Illness: pt a 67 years old man with a past medical history end-stage renal disease on hemodialysis, hypertension, hyperlipidemia, diabetes, hypothyroidism presented to the emergency room with with left sided testicular pain that started 2 weeks ago patient was seen by a urologist Dr. Ocasio was started him on Augmentin for 2 weeks, on Wednesday patient continue to have back pain and was seen again by urologist who recommended admission for IV antibiotic Patient denies chest pain, shortness of breath, palpitation, exertional dyspnea , change in bowel habits, headache, dizziness, or any other complaints. CT scan and ultrasound of the testes was done which shows epididymitis and orchitis Allergies No Known Drug Allergies Allergy (Verified 06/25/17 09:57) Unknown Home Medications: Calcium Acetate 667 mg PO TID 07/23/12 Cholecalciferol (Vitamin D3) [Vitamin D3] 5,000 unit PO DAILY 07/23/12 Furosemide [Lasix*] 40 mg PO BID 07/23/12 Hydralazine 100 mg PO TID 07/23/12 Levamir 16 units SQ DAILY 07/23/12 Sodium Bicarbonate 10 Grain 10 mg PO TID* 07/23/12 Atorvastatin Calcium [Lipitor] 80 mg PO BEDTIME 05/17/17 Levothyroxine [Synthroid*] 88 mcg PO [id number] 05/17/17 Terazosin HCl [Hytrin*] 5 mg PO BID 05/17/17 Calcitrol [Rocaltrol*] 0.5 mcg PO DAILY #30 cap 05/21/17 Pantoprazole [Protonix Tab] 40 mg PO DAILY #30 tab 05/21/17 Sevelamer Carbonate [Renvela*] 800 mg PO TIDWM #90 tablet 05/21/17 - Past Medical/Surgical History Diabetic: Yes -: Hypertension -: Acute on chronic kidney failure -: Diabetes mellitus type 2 -: HLD -: Hernia Repair -: Ureter/Urethra Sx -: R Cataract removal -: 5th toe right foot amputation - Social History Alcohol use: Yes CD- Drugs: Yes Caffeine use: Yes Review of Systems 10-point ROS is otherwise unremarkable Physical Examination - Physical Exam General: Alert, Oriented x3 HEENT: Atraumatic, Normocephalic, PERRLA Respiratory: Clear to auscultation bilaterally, Normal air movement Cardiovascular: No edema, Regular rate/rhythm, Normal S1 S2 Gastrointestinal: Normal bowel sounds, Soft and benign, Non-distended Musculoskeletal: No erythema, No tenderness Integumentary: No rashes Neurological: Normal speech, Normal strength at 5/5 x4 extr, Normal tone External genitalia: Tenderness (Redness and tenderness of the left side of the testes) - Studies Laboratory Data (last 24 hrs) 05/29/18 13:31: Sodium 139, Potassium 4.1, BUN 65 H, Creatinine 8.59 H*, Glucose 102 05/29/18 13:31: WBC 7.6, Hgb 9.9 L, Hct 29.3 L, Plt Count 188 Assessment and Plan - Plan Assessment and plan Epididymo-orchitis As urologic consult Dr. Benjamin Thompson IV Tramadol p.r.n. pain End-stage renal disease on hemodialysis Nephrology consult Continue hemodialysis as scheduled mwf Hypertension Continue hydralazine Hypothyroidism continue levothyroxine Diabetes type 2 Sliding scale insulin DVT prophylaxis with heparin - Advance Directives Does patient have a Living Will: No Does patient have a Durable POA for Healthcare: No
[2018-05-29 20:58] VITALS: O2SAT 98
[2018-05-29 20:59] VITALS: BMI 25.9
[2018-05-29 21:51] LABS: Urine Blood NEGATIVE (NEG); Urine Glucose NEGATIVE (NEG); Urine Protein 1+ (NEG); Urine Specific Gravity 1.015 (1.005-1.030)
[2018-05-29] MEDS ORDERED: ACETAMINOPHEN 500 MG TAB PO PRN (22:29)
[2018-05-29] MEDS ORDERED: ATORVASTATIN 80 MG TAB PO SCH (22:29)
[2018-05-29] MEDS: INSULIN -REGULAR HUMAN 50 UNIT/0.5 ML ML SQ SCH (22:29)
[2018-05-29] MEDS ORDERED: Levofloxacin500mg IV 500 MG/100 ML BAG IV ONE (22:29)
[2018-05-29] MEDS ORDERED: HYDRALAZINE HCL 25 MG TABLET PO SCH (23:00)
[2018-05-29 23:15] LABS: Absolute Lymphocytes (CBC) 1.2 K/uL (0.7-4.9); Absolute Monocytes 0.7 K/uL (0.1-1.3); Absolute Neutrophil 4.2 K/uL (1.8-8.0); Basophils % 1.1 % (0-1.3); Eosinophils % 3.3 % (0-4.4); Hematocrit 26.7 % (39.6-49.0); Lymphocytes % 18.7 % (15.3-44.8); MPV 8.7 fL (7.6-11.3); Monocytes % 10.8 % (3.3-12.3); RBC Red Blood Cell Count 2.59 M/uL (4.33-5.43)
[2018-05-30] MEDS: HEPARIN 5000 UNIT/ML 1 ML VIAL SQ SCH ×2 (00:38→08:54)
[2018-05-30 01:48] LABS: Urine Appearance CLEAR; Urine Bilirubin NEGATIVE (NEG); Urine Blood NEGATIVE (NEG); Urine Color YELLOW; Urine Glucose NEGATIVE (NEG); Urine Protein 1+ (NEG); Urine Urobilinogen 0.2 mg/dL (0.2-1.0)
[2018-05-30 01:51] LABS: Urine Microscopic Reflex ORDER UMIC
[2018-05-30 02:01] LABS: Urine Bacteria <20 /HPF (NONE SEEN); Urine Culture Reflex Order NOT NEEDED; Urine RBC NONE SEEN /HPF (NONE SEEN)
[2018-05-30] MEDS: TRAMADOL HCL 50 MG TAB PO PRN ×2 (03:48→12:02)
[2018-05-30 05:05] VITALS: BP 139/65; TEMP 97.4
[2018-05-30] MEDS ORDERED: LEVOTHYROXINE SOD 0.088 MG TAB PO SCH (06:00)
[2018-05-30] MEDS: INSULIN -REGULAR HUMAN 50 UNIT/0.5 ML ML SQ SCH ×2 (07:30→11:30)
--- NOTE | 2018-05-30 07:38 | EKG ---
Test Date: 2018-05-29 Test Time: 23:59:00 [employer]: RT-O MEASUREMENT RESULTS: Intervals: Rate: 36 NV: QRSD: 98 QT: 558 QTc: 431 Oark: P: 15 NV: QRS: 2 T: 127 INTERPRETIVE STATEMENTS: Marked sinus bradycardia with AV dissociation and Junctional bradycardia with sinus/atrial capture ST & T wave abnormality, consider lateral ischemia Abnormal ECG Compared to ECG 05/16/2017 23:25:51 AV dissociation now present ST (T wave) deviation now present Possible ischemia now present Sinus rhythm no longer present First degree AV block no longer present Right-axis deviation no longer present Electronically Signed On 05-30-18 07:37:30 SPINE SPECIALIST by Benjy German
--- NOTE | 2018-05-30 08:34 | P.PN ---
Subjective Date of Service: 05/30/18 5:30 a.m. Called by nursing staff to evaluate because of the bradycardia. Patient was placed on telemetry this evening. Patient was bradycardic. Patient has been found have recent cardiac catheterization that was done here which revealed a 30 % lesion in the LAD. Ejection fraction was normal. Review of Systems 10-point ROS is otherwise unremarkable Physical Examination - Vital Signs Temperature: 97.4 F Blood Pressure: 139/65 Pulse: 45 Respirations: 17 Pulse Ox (%): 98 - Physical Exam General: Alert, In no apparent distress Respiratory: Clear to auscultation bilaterally, Normal air movement Cardiovascular: Normal S1 S2, Systolic murmur Gastrointestinal: Soft and benign, Non-distended - Studies Laboratory Data (last 24 hrs) 05/29/18 13:31: Sodium 139, Potassium 4.1, BUN 65 H, Creatinine 8.59 H*, Glucose 102 05/29/18 13:31: WBC 7.6, Hgb 9.9 L, Hct 29.3 L, Plt Count 188 Assessment & Plan - Problems (Diagnosis) (1) AV dissociation Current Visit: Yes Status: Acute (2) Acute kidney injury superimposed on CKD Onset Date: 05/17/17 Current Visit: No Status: Acute (3) Anemia Current Visit: No Status: Chronic Qualifiers: Anemia type: due to chronic kidney disease Chronic kidney disease stage: stage 5, not on chronic dialysis Qualified Code(s): N18.5 - Chronic kidney disease, stage 5; D63.1 - Anemia in chronic kidney disease; D63.1 - Anemia in chronic kidney disease (4) Diabetes mellitus type 2, controlled Onset Date: 05/17/17 Current Visit: No Status: Chronic Qualifiers: Diabetes mellitus [employer] insulin use: unspecified [employer] insulin use status Diabetes mellitus complication status: with kidney complications Diabetes mellitus complication detail: with chronic kidney disease Chronic kidney disease stage: on chronic dialysis Qualified Code(s): E11.22 - Type 2 diabetes mellitus with diabetic chronic kidney disease; N18.6 - End stage renal disease; N18.6 - End stage renal disease; N18.6 - End stage renal disease; N18.6 - End stage renal disease; Z99.2 - Dependence on renal dialysis; Z99.2 - Dependence on renal dialysis; Z99.2 - Dependence on renal dialysis; Z99.2 - Dependence on renal dialysis (5) Hyperlipidemia Current Visit: No Status: Chronic Qualifiers: Hyperlipidemia type: unspecified Qualified Code(s): E78.5 - Hyperlipidemia , unspecified (6) Hypothyroidism Current Visit: No Status: Chronic Qualifiers: Hypothyroidism type: unspecified Qualified Code(s): E03.9 - Hypothyroidism , unspecified (7) Pulmonary hypertension Current Visit: No Status: Chronic (8) GERD (gastroesophageal reflux disease) Current Visit: No Status: Suspected Qualifiers: Esophagitis presence: esophagitis presence not specified Qualified Code(s) : K21.9 - Gastro-esophageal reflux disease without esophagitis (9) Obstructive sleep apnea Current Visit: No Status: Suspected (10) Urinary tract infection Current Visit: Yes Status: Acute - Plan 1. Physical therapy evaluation 2. Speech therapy evaluation 3. Anti-platelet therapy and statin therapy 4. Lipid profile in the morning 5. MRI of the brain if symptoms do not improve over the next 48 hr 6. Physically patient is doing well and may benefit more from outpatient physical therapy and inpatient rehab 7. Neurology consultation 8. Permissive hypertension and gradual blood pressure control 9. Neuro checks every 4 hr 10. GI and DVT prophylaxis Discharge Plan: Home Plan to discharge in: 24 Hours - Advance Directives Does patient have a Living Will: No Does patient have a Durable POA for Healthcare: Yes - Code Status/Comfort Care Code Status Assessed: Yes Code Status: Full Code Physician Review: Patient Assessed, Agree with Above Assessment and Plan Critical Care: No
[2018-05-30] MEDS ORDERED: NA CHLORIDE 0.9% 1,000 ML IV PRN (10:44)
[2018-05-30] MEDS ORDERED: MANNITOL 25% 12.5 GM/50 ML VIAL IV PRN (10:44)
[2018-05-30] MEDS ORDERED: EPOETIN ALFA 10,000 UNIT/ML VIAL IV SCH (10:45)
[2018-05-30 10:52] LABS: Thyroid Stimulating Hormone 5.16 uIU/mL (0.360-3.740)
[2018-05-30] MEDS ORDERED: ALBUMIN HUMAN 25% 50 ML IV SCH (11:00)
--- NOTE | 2018-05-30 11:28 | P.DS ---
Admission Date: 05/29/18 Discharge Date: 05/30/18 Primary Care Provider: Dr. Guevara; Urology-Dr. Alexander; Cardiology-Dr. Glaser Disposition: TRANSFER TO [facility] Discharge Condition: GOOD Reason for Admission: orchitis Consultations: Cardiology-Dr. Glaser Nephrology-Dr. Stokes Urology-Dr. Alexander Procedures: CT AB: COMPARISON: None. TECHNIQUE: Computed axial tomography of the abdomen pelvis was obtained without oral or IV contrast. Lack of IV and oral contrast limits evaluation of solid organs, bowel, and vessels. Coronal reformatted images were obtained and reviewed. All CT scans are performed using dose optimization technique as appropriate and may include automated exposure control or mA/KV adjustment according to patient size. FINDINGS: A renal calculus is not seen. An ureteral calculus is not noted. A bladder calculus is not present. Bladder wall thickening may be secondary to incomplete distention, outlet obstruction or cystitis. Prostate gland is mildly enlarged The liver, spleen, pancreas and adrenals appear grossly normal There is no evidence of diverticulitis. The appendix appears normal Left scrotal skin thickening. 2.8 centimeter structure is present within the inferior left scrotum Small inguinal hernias Small umbilical hernia contains fat. Mild stranding within the fat may indicate inflammation IMPRESSION: Negative for a genitourinary calculus Left scrotal skin thickening 2.8 centimeter structure within the inferior left scrotum is incompletely evaluated on this exam. It may be part of the left testicle or extratesticular. Scrotal US: COMPARISON: None FINDINGS: Right testicle measures 3 x 2.3 x 2.2 centimeters. Echotexture is homogeneous. Normal blood flow. A 9 millimeter right spermatocele. 7 millimeter calcification within the right scrotum is benign. Left testicle measures 2.4 x 1.6 x 2.4 centimeters. Echotexture is homogeneous. Increased blood flow to the left testicle and left epididymis. 3.3 centimeter complex loculated left hydrocele compresses the left testicle Low scrotal skin thickening IMPRESSION: Left orchitis/epididymitis 3.3 centimeter complex loculated left hydrocele Medical Problem List: Bradycardia with noted AV disassociation requiring pacemaker Left orchitis and epididymitis, urine culture for strep and Klebsiella as per Urology complicated with 3.3 cm complex loculated left hydrocele CAD with history of 30% stenosis of LAD Diabetes mellitus type 2, insulin dependent End-stage renal disease on hemodialysis Hyperlipidemia Hypothyroidism Obstructive sleep apnea BPH GERD Brief History of Present Illness: 67-year-old male presented to the emergency room with back pain. Patient recently started on antibiotic therapy for orchitis/epididymitis by urology. Patient was admitted for further evaluation. Hospital Course: Patient admitted for back pain. Patient started treatment for left orchitis/ epididymitis. CT scan of the abdomen and scrotal ultrasound confirm this. It also showed a complicated left complex loculated left hydrocele. Patient seen and evaluated by urology. Urology reported recent urine culture positive for Klebsiella and Streptococcus. Urology recommended to continue with antibiotic therapy for 1 more week and follow up with urology as an outpatient. At discharge patient will continue with Augmentin 500 mg daily for 7 days. Recommend to follow up with urology to further monitor and address. His admission was complicated with bradycardia. EKG showed AV disassociation. Patient seen and evaluated by Cardiology. Cardiology recommended that the patient be transferred for pacemaker placement. Patient to be transferred to for further evaluation and treatment. Patient has been accepted to [facility] to Dr. Cam Campos. Metoprolol currently on hold. Patient with other medical problems including diabetes mellitus type 2-insulin dependent, hypothyroidism, end-stage renal disease on hemodialysis, hypothyroidism, GERD, BPH, and CAD. Patient will continue with his medications including Lipitor 80 mg daily, Calcitrol 0.5 daily, Lasix 40 mg 1 pill twice daily, Levemir 12 units subcu daily, Synthroid 100 mcg daily, Protonix 40 mg daily, Renvela 800 mg 1 pill 3 times a day, and Hytrin 5 mg 1 pill twice daily. Patient will continue with dialysis as directed. Vital Signs/Physical Exam: Temp Pulse Resp BP Pulse Ox 97.4 F 45 L 17 139/65 98 05/30/18 08:34 05/30/18 08:34 05/30/18 08:34 05/30/18 08:34 05/30/18 08:34 General: Alert, In no apparent distress, Oriented x3, Cooperative HEENT: Atraumatic Neck: Supple Respiratory: Clear to auscultation bilaterally, Normal air movement Cardiovascular: Normal pulses, Regular rate/rhythm, Systolic murmur Gastrointestinal: Normal bowel sounds, Soft and benign, Non-distended, No masses , No rebound, No guarding Neurological: Normal speech, Normal strength at 5/5 x4 extr, Normal tone, Normal affect External genitalia: Other (Left scrotal enlargement. No significant erythema noted.) Laboratory Data at Discharge: WBC 6.4 K/uL (4.3-10.9) D 05/29/18 22:45 Hgb 8.9 g/dL (13.6-17.9) L 05/29/18 22:45 Hct 26.7 % (39.6-49.0) L 05/29/18 22:45 Plt Count 173 K/uL (152-406) 05/29/18 22:45 Sodium 139 mmol/L (136-145) 05/29/18 22:45 Potassium 4.0 mmol/L (3.5-5.1) 05/29/18 22:45 BUN 71 mg/dL (7-18) H 05/29/18 22:45 Creatinine 8.98 mg/dL (0.55-1.3) H* 05/29/18 22:45 Glucose 147 mg/dL (74-106) H 05/29/18 22:45 Home Medications: Cholecalciferol (Vitamin D3) [Vitamin D3] 3,000 unit PO DAILY 07/23/12 Furosemide [Lasix*] 40 mg PO BID 07/23/12 Levamir 12 units SQ DAILY 07/23/12 Atorvastatin Calcium [Lipitor] 80 mg PO BEDTIME 05/17/17 Terazosin HCl [Hytrin*] 5 mg PO BID PRN 05/17/17 Pantoprazole [Protonix Tab*] 40 mg PO DAILY #30 tab 05/21/17 Sevelamer Carbonate [Renvela*] 800 mg PO TIDWM #90 tablet 05/21/17 Calcitrol [Rocaltrol*] 0.5 mcg PO DAILY PRN 05/29/18 Colchicine [Colcrys *] 0.6 mg PO DAILY PRN 05/29/18 Cyclosporine [Restasis] 1 drop OPTH BID 05/29/18 Ferrous Fumarate/Vit Bcomp&C [Super B-Complex Caplet] 1 tab PO DAILY 05/29/18 Levothyroxine [Synthroid*] 100 mcg PO DAILY 05/29/18 Amox/Clavulanate [Augmentin 500-125 mg Tab*] 500 mg PO DAILY #7 tab 05/30/18 New Medications: Amox/Clavulanate [Augmentin 500-125 mg Tab*] 500 mg PO DAILY #7 tab Patient Discharge Instructions: 1. Patient be transferred to for pacemaker placement. 2. His admission was complicated with bradycardia. EKG showed AV disassociation. Patient seen and evaluated by Cardiology. Cardiology recommended that the patient be transferred for pacemaker placement. Patient to be transferred to for further evaluation and treatment. Patient has been accepted to [facility] to Dr. Cam Campos. Metoprolol currently on hold. 3. Patient admitted for back pain. Patient started treatment for left orchitis/ epididymitis. CT scan of the abdomen and scrotal ultrasound confirm this. It also showed a complicated left complex loculated left hydrocele. Patient seen and evaluated by urology. Urology reported recent urine culture positive for Klebsiella and Streptococcus. Urology recommended to continue with antibiotic therapy for 1 more week and follow up with urology as an outpatient. At discharge patient will continue with Augmentin 500 mg daily for 7 days. Recommend to follow up with urology to further monitor and address. 4. Patient with other medical problems including diabetes mellitus type 2-insulin dependent, hypothyroidism, end-stage renal disease on hemodialysis, hypothyroidism, GERD, BPH, and CAD. Patient will continue with his medications including Lipitor 80 mg daily, Calcitrol 0.5 daily, Lasix 40 mg 1 pill twice daily, Levemir 12 units subcu daily, Synthroid 100 mcg daily, Protonix 40 mg daily, Renvela 800 mg 1 pill 3 times a day, and Hytrin 5 mg 1 pill twice daily. Patient will continue with dialysis as directed. Diet: ADA Activity: Fall precautions Time spent managing pt's care (in minutes): 55
[2018-05-30] MEDS ORDERED: AMOX/K CLAV 500 MG TAB PO SCH (11:30)
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
--- NOTE | 2018-05-30 12:35 | CON ---
Mr. Barboza is 67. He is a chronic hemodialysis patient and came to the hospital mainly with pain i n the scrotum. He has been treated for an infection. I believe it was epididymitis by Dr. Alexander, th at seemed to be doing better. His scrotum ultrasound reveals hydrocele and there is evidence of epid idymitis still on the ultrasound that he is feeling better from it. I am asked to see him not for th at, but because of profound bradycardia. He has complete heart block. His junctional escape rhythm is about 50 beats per minute, but it is complete AV dissociation. [facility] No significant stenosis. There was a PTCA or stent done that was in June 2017, farzad kent a year ago. He is not having chest pain. Enzymes have not been checked. I do not think they need to be. Medications: Outpatient medications have been insulin, Lasix, vitamin D3, Lipitor 80, terazosin, Pro tonix, sevelamer, levothyroxine, metoprolol, which has been stopped, cyclosporine, iron fumarate, col chicine, and calcitriol. Physical Examination: General: He is alert, oriented, pleasant. Vital Signs: Heart rate 45, blood pressure 139/65, respiratory rate 17, temperature 97.4. HEENT: Unremarkable. Lungs: Clear. Heart: Regular rate and rhythm. I did not appreciate any Fowler A waves. Abdomen: Soft. Extremities: Diminished but palpable distal pulses. Laboratory Data: Creatinine is 8.98. TSH has not been drawn yet. Blood sugar 102, 147, 146. Impression: The patient has complete heart block, not given him beta-blockers anymore, but I do not think it is going to resolve and I believe he needs a pacemaker. We will check a TSH and I will try to arrange a transfer for him to go up to one of our [facility] at some point. LIOR/MODL Voice ID: [id number] Report ID: [id number]
--- NOTE | 2018-05-30 14:17 | P.CNS ---
Date of Consult: 05/30/18 Reason for Consult: ESRD Requesting Physician: Leonidas Telles Primary Care Provider: Dr. Guevara; Urology-Dr. Alexander; Cardiology-Dr. Glaser Chief Complaint: orchitis History of Present Illness: pt a 67 years old man with a past medical history end-stage renal disease on hemodialysis, hypertension, hyperlipidemia, diabetes, hypothyroidism presented to the emergency room with with left sided testicular pain that started 2 weeks ago patient was seen by a urologist Ocasio was started him on Augmentin for 2 weeks, on Wednesday patient continue to have back pain and was seen again by urologist who recommended admission for IV antibiotic Patient denies chest pain, shortness of breath, palpitation, exertional dyspnea , change in bowel habits, headache, dizziness, or any other complaints. CT scan and ultrasound of the testes was done which shows epididymitis and orchitis. 17:09 This 67 yrs old Male presents to ER via Wheelchair with complaints of Urinary gs Problem, Low Back Pain. 17:09 The patient presents with pain that is acute. The symptoms are located in the low back. gs The pain does not radiate. Onset: The symptoms/episode began/occurred 3 day(s) ago. Modifying factors: The patient symptoms are alleviated by nothing, the patient symptoms are aggravated by bending. Associated signs and symptoms: Pertinent negatives: hematuria, incontinence, numbness, tingling, urinary retention. Severity of symptoms: At their worst the symptoms were moderate, in the emergency department the symptoms are unchanged. The patient has experienced similar episodes in the past, a few times. Allergies No Known Drug Allergies Allergy (Verified 06/25/17 09:57) Unknown Home medications list reviewed: Yes Home Medications: Cholecalciferol (Vitamin D3) [Vitamin D3] 3,000 unit PO DAILY 07/23/12 Furosemide [Lasix*] 40 mg PO BID 07/23/12 Levamir 12 units SQ DAILY 07/23/12 Atorvastatin Calcium [Lipitor] 80 mg PO BEDTIME 05/17/17 Terazosin HCl [Hytrin*] 5 mg PO BID PRN 05/17/17 Pantoprazole [Protonix Tab*] 40 mg PO DAILY #30 tab 05/21/17 Sevelamer Carbonate [Renvela*] 800 mg PO TIDWM #90 tablet 05/21/17 Calcitrol [Rocaltrol*] 0.5 mcg PO DAILY PRN 05/29/18 Colchicine [Colcrys *] 0.6 mg PO DAILY PRN 05/29/18 Cyclosporine [Restasis] 1 drop OPTH BID 05/29/18 Ferrous Fumarate/Vit Bcomp&C [Super B-Complex Caplet] 1 tab PO DAILY 05/29/18 Levothyroxine [Synthroid*] 100 mcg PO DAILY 05/29/18 Amox/Clavulanate [Augmentin 500-125 mg Tab*] 500 mg PO DAILY #7 tab 05/30/18 - Past Medical/Surgical History Diabetic: Yes -: Hypertension -: Acute on chronic kidney failure - Dialysis MWF -: Diabetes mellitus type 2 -: High cholesterol -: Hernia Repair -: Ureter/Urethra Sx -: Both eyes Cataract removal -: 5th toe right foot amputation - Family History Father Medical History: Heart disease, Hypertension, Diabetes, Cancer Mother Medical History: Heart disease, Hypertension - Social History Smoking Status: Never smoker Alcohol use: No CD- Drugs: No Caffeine use: Yes Place of Residence: Home Review of Systems 10-point ROS is otherwise unremarkable General: Weakness Respiratory: SOB with Excertion Musculoskeletal: Back Pain Physical Examination Temp Pulse Resp BP Pulse Ox 97.4 F 45 L 17 139/65 98 05/30/18 08:34 05/30/18 08:34 05/30/18 08:34 05/30/18 08:34 05/30/18 08:34 General: Oriented x3, Cooperative HEENT: Atraumatic, Mucous membr. moist/pink Neck: Supple Respiratory: Clear to auscultation bilaterally Cardiovascular: No edema, Regular rate/rhythm, No rubs Gastrointestinal: Soft and benign, Non-distended Musculoskeletal: No clubbing, No contractures, Tenderness Integumentary: No rashes, No cyanosis Neurological: Normal speech Laboratory Data (last 24 hrs) 05/29/18 13:31: Sodium 139, Potassium 4.1, BUN 65 H, Creatinine 8.59 H*, Glucose 102 Imagings Data: EXAM DESCRIPTION: CT - Stone Protocol - 05/29/2018 1:08 pm CLINICAL HISTORY: Abdominal pain. Lower abdominal pain. COMPARISON: None. TECHNIQUE: Computed axial tomography of the abdomen pelvis was obtained without oral or IV contrast. Lack of IV and oral contrast limits evaluation of solid organs, bowel, and vessels. Coronal reformatted images were obtained and reviewed. All CT scans are performed using dose optimization technique as appropriate and may include automated exposure control or mA/KV adjustment according to patient size. FINDINGS: A renal calculus is not seen. An ureteral calculus is not noted. A bladder calculus is not present. Bladder wall thickening may be secondary to incomplete distention, outlet obstruction or cystitis. Prostate gland is mildly enlarged The liver, spleen, pancreas and adrenals appear grossly normal There is no evidence of diverticulitis. The appendix appears normal Left scrotal skin thickening. 2.8 centimeter structure is present within the inferior left scrotum Small inguinal hernias Small umbilical hernia contains fat. Mild stranding within the fat may indicate inflammation IMPRESSION: Negative for a genitourinary calculus Left scrotal skin thickening 2.8 centimeter structure within the inferior left scrotum is incompletely evaluated on this exam. It may be part of the left testicle or extratesticular. Ultrasound recommended. EXAM DESCRIPTION: US - Scrotum Testicles - 05/29/2018 2:43 pm CLINICAL HISTORY: Scrotal pain COMPARISON: None FINDINGS: Right testicle measures 3 x 2.3 x 2.2 centimeters. Echotexture is homogeneous. Normal blood flow. A 9 millimeter right spermatocele. 7 millimeter calcification within the right scrotum is benign. Left testicle measures 2.4 x 1.6 x 2.4 centimeters. Echotexture is homogeneous. Increased blood flow to the left testicle and left epididymis. 3.3 centimeter complex loculated left hydrocele compresses the left testicle Low scrotal skin thickening IMPRESSION: Left orchitis/epididymitis 3.3 centimeter complex loculated left hydrocele Conclusions/Impression: A/ ESRD on HD. Diastolic CHF, chronic. HTN with CKD/ CHF. Anemia in CKD. ANTON/ Secondary HyperPTH. DM II with CKD. Bradycardia/ Junctional rhythm. P/ Continue current POC and Medications. Arrange for acute HD. Restart home medications as indicated. Give Epo. Start Vitamin D. EKG reviewed. Plan for pacemaker placement. No NSAIDs. AM labs. Daily weight. Thank you for the consultation. Case discussed with Dr. Telles. Plan for transfer to [facility] for pacemaker placement.
[2018-05-31] MEDS ORDERED: Levofloxacin 250mg IV 250 MG/50 ML BAG IV SCH (21:00)
== END 2018-05-30 12:40 | disposition short-term general hospital (02) | DRG 727 ==
LOC: ER 11:21 → ERHOLD 17:42 → 4TH 19:58
PROVIDERS: ATTEND Family Medicine
DX: N45.3 Epididymo-orchitis (principal); N18.6 End stage renal disease; I44.2 Atrioventricular block, complete; I12.0 Hypertensive chronic kidney disease with stage 5 chronic kidney disease or end stage renal disease; N17.9 Acute kidney failure, unspecified; N39.0 Urinary tract infection, site not specified; R00.1 Bradycardia, unspecified; B96.1 Klebsiella pneumoniae [K. pneumoniae] as the cause of diseases classified elsewhere; B95.5 Unspecified streptococcus as the cause of diseases classified elsewhere; N43.3 Hydrocele, unspecified; I25.10 Atherosclerotic heart disease of native coronary artery without angina pectoris; K21.9 Gastro-esophageal reflux disease without esophagitis; N40.0 Benign prostatic hyperplasia without lower urinary tract symptoms; G47.33 Obstructive sleep apnea (adult) (pediatric); E03.9 Hypothyroidism, unspecified; E78.5 Hyperlipidemia, unspecified; E11.9 Type 2 diabetes mellitus without complications; Z79.4 Long term (current) use of insulin; E11.22 Type 2 diabetes mellitus with diabetic chronic kidney disease; Z99.2 Dependence on renal dialysis; D63.1 Anemia in chronic kidney disease
CPT/HCPCS: 36415; 74176; 76377; 76870; 80048; 81003; 81015; 82962; 84439; 84443; 85025; 87040; 93005; 96374; 99285; J0696; J1644

== ENCOUNTER 2019-06-16 11:36 | Emergency (ER) | payer OTHER ==
--- OUTSIDE RECORDS SUMMARY | 2019-06-16 11:39 | XMS REPORT ---
:1950 [facility] Address [address] [place] [address] Dr. Rud[address] [place] [address] Care Team Providers Name Role Phone Unavailable Unavailable Unavailable Problems This patient has no known problems. Allergies, Adverse Reactions, Alerts This patient has no known allergies or adverse reactions. Medications This patient has no known medications. Encounters Start End Encounter Admission Attending Care Care Encounter Date/Time Date/Time Type Type Clinicians Facility Department ID 2018-08-30 [id number] 08:23:02 2019-06-06 2019-06-06 Outpatient [facility] [id number] 11:17:00 11:17:00 2019-03-30 2019-03-30 Outpatient [facility]UL [id number] 14:11:00 14:11:00 2019-03-14 2019-03-14 Outpatient [facility] CAR [id number] 06:23:00 06:23:00 2019-02-21 2019-02-21 Outpatient [facility] [id number] 10:06:00 10:06:00 2019-02-21 2019-02-21 Outpatient [facility] [id number] 08:13:00 08:13:00 2019-01-19 2019-01-19 Outpatient [facility] [id number] 06:36:00 06:36:00 2019-01-05 2019-01-05 Outpatient [facility] [id number] 10:45:00 10:45:00 2018-12-29 2018-12-29 Outpatient [facility] CAR [id number] 07:20:00 07:20:00 2018-12-21 2018-12-21 Outpatient [facility] CAR [id number] 12:04:00 12:04:00 2018-11-01 2018-11-01 Outpatient [facility] PUL [id number] 10:56:00 10:56:00 2018-11-01 2018-11-01 Outpatient [facility] [id number] 08:39:00 08:39:00 2018-10-03 2018-10-03 Inpatient E [facility] [id number] 19:01:00 19:01:00 2018-09-28 2018-09-28 Outpatient [facility] [id number] 05:38:00 05:38:00 2018-09-15 2018-09-15 Outpatient [facility] [id number] 09:06:00 09:06:00 2018-09-08 2018[id number] 07:46:00 07:46:00 2018-08-02 2018-08-02 Outpatient [facility] [id number] 07:33:00 07:33:00
--- NOTE | 2019-06-16 12:23 | EDPHYS ---
Physician Documentation [facility] Name: Glenn Barboza Age: 69 yrs Sex: Male : 1950 Arrival Date: 06/16/2019 Time: 11:40 Bed 23 Private MD: ED Physician David Leonard HPI: 06/15 12:15 This 69 yrs old Male presents to ER via EMS with complaints of Bleeding from juvencio dialysis site. 12:15 The patient or guardian complains of penetrating injury. Context: The problem was juvencio sustained at a dialysis. Onset: The symptoms/episode began/occurred just prior to arrival. Treatment prior to arrival includes: applying pressure to the affected area. Modifying factors: The symptoms are alleviated by remaining still, the symptoms are aggravated by movement, bending arm. Associated signs and symptoms: The patient has no apparent associated signs or symptoms. The patient has not experienced similar symptoms in the past. Historical: - Allergies: 11:58 No Known Allergies; iw - Home Meds: 11:58 atorvastatin 80 mg oral tab 1 tab once daily [Active]; Vitamin D 125 mcg Oral daily iw [Active]; Vitamin B-12 Oral daily [Active]; furosemide 40 mg Oral tab 1 tab 2 times per day [Active]; Toprol XL 50 mg Oral Tb24 1 tab once daily [Active]; Levemir 100 unit/mL subcutaneous soln 16 unit [Active]; 12:02 levothyroxine 100 mcg tab 1 tab once daily [Active]; pantoprazole 40 mg oral TbEC 1 tab iw once daily [Active]; sevelamer HCl oral 800 mg oral 3 times per day [Active]; aspirin 81 mg Oral TbEC 1 tab once daily [Active]; ferrous sulfate 325 mg (65 mg iron) Oral TbEC three times a day [Active]; rifampin 300 mg Oral cap 2 times per day [Active]; terazosin 2 mg oral cap 1 cap once daily [Active]; - PMHx: 12:02 Diabetes; Hyperlipidemia; Hypertension; Renal Disease; Dialysis; iw - Immunization history:: Adult Immunizations up to date. - Social history:: Smoking status: Patient/guardian denies using tobacco. - Family history:: not pertinent. ROS: 12:15 Constitutional: Negative for fever, chills, and weight loss, Eyes: Negative for injury, juvencio pain, redness, and discharge, ENT: Negative for injury, pain, and discharge, Neck: Negative for injury, pain, and swelling, Cardiovascular: Negative for chest pain, palpitations, and edema, Respiratory: Negative for shortness of breath, cough, wheezing, and pleuritic chest pain, Abdomen/GI: Negative for abdominal pain, nausea, vomiting, diarrhea, and constipation, Back: Negative for injury and pain, : Negative for injury, bleeding, discharge, and swelling, Skin: Negative for injury, rash, and discoloration, Neuro: Negative for headache, weakness, numbness, tingling, and seizure, Psych: Negative for depression, anxiety, suicide ideation, homicidal ideation, and hallucinations, Allergy/Immunology: Negative for hives, rash, and allergies, Endocrine: Negative for neck swelling, polydipsia, polyuria, polyphagia, and marked weight changes, Hematologic/Lymphatic: Negative for swollen nodes, abnormal bleeding, and unusual bruising. 12:15 MS/extremity: Positive for pain, of the left bicep, bleeding. Exam: 12:15 Constitutional: This is a well developed, well nourished patient who is awake, alert, juvencio and in no acute distress. Head/Face: Normocephalic, atraumatic. Eyes: Pupils equal round and reactive to light, extra-ocular motions intact. Lids and lashes normal. Conjunctiva and sclera are non-icteric and not injected. Cornea within normal limits. Periorbital areas with no swelling, redness, or edema. ENT: Nares patent. No nasal discharge, no septal abnormalities noted. Tympanic membranes are normal and external auditory canals are clear. Oropharynx with no redness, swelling, or masses, exudates, or evidence of obstruction, uvula midline. Mucous membranes moist. Neck: Trachea midline, no thyromegaly or masses palpated, and no cervical lymphadenopathy. Supple, full range of motion without nuchal rigidity, or vertebral point tenderness. No Meningismus. Chest/axilla: Normal chest wall appearance and motion. Nontender with no deformity. No lesions are appreciated. Cardiovascular: Regular rate and rhythm with a normal S1 and S2. No gallops, murmurs, or rubs. Normal PMI, no JVD. No pulse deficits. Respiratory: Lungs have equal breath sounds bilaterally, clear to auscultation and percussion. No rales, rhonchi or wheezes noted. No increased work of breathing, no retractions or nasal flaring. Abdomen/GI: Soft, non-tender, with normal bowel sounds. No distension or tympany. No guarding or rebound. No evidence of tenderness throughout. Back: No spinal tenderness. No costovertebral tenderness. Full range of motion. Male : Normal genitalia with no discharge or lesions. Skin: Warm, dry with normal turgor. Normal color with no rashes, no lesions, and no evidence of cellulitis. Neuro: Awake and alert, GCS 15, oriented to person, place, time, and situation. Cranial nerves II-XII grossly intact. Motor strength 5/5 in all extremities. Sensory grossly intact. Cerebellar exam normal. Normal gait. Psych: Awake, alert, with orientation to person, place and time. Behavior, mood, and affect are within normal limits. 12:15 Musculoskeletal/extremity: Extremities: puncture. Vital Signs: 11:50 BP 165 / 65; Pulse 59; Resp 16; Temp 98.1; Pulse Ox 100% on R/A; iw 12:16 BP 166 / 66; Pulse 59; Resp 16; Pulse Ox 100% on R/A; Weight 96.62 kg; Height 5 ft. 11 vc in. (180.34 cm); Pain 0/10; 12:16 Body Mass Index 29.71 (96.62 kg, 180.34 cm) vc MDM: 12:03 Patient medically screened. [facility] 12:18 Data reviewed: vital signs, nurses notes. [facility] 06/15 12:15 Order name: Wound Care; Complete Time: 12:19 [facility] Administered Medications: No medications were administered Disposition: 06/16/19 12:22 Discharged to Home. Impression: Puncture wound without foreign body of left upper arm - av fistula bleeding. - Condition is Stable. - Discharge Instructions: AV Fistula Placement, Care After. - Medication Reconciliation Form, Thank You Letter, Antibiotic Education, Prescription Opioid Use form. - Follow up: Private Physician; When: 2 - 3 days; Reason: Recheck today's complaints, Continuance of care, Re-evaluation by your physician. - Problem is new. - Symptoms have improved. Signatures: David Leonard MD MD cha Williams, Irene RN Heidi Osorio RN RN vc Corrections: (The following items were deleted from the chart) 12:31 12:22 06/16/2019 12:22 Discharged to Home. Impression: Puncture wound without foreign vc body of left upper arm - av fistula bleeding. Condition is Stable. Forms are Medication Reconciliation Form, Thank You Letter, Antibiotic Education, Prescription Opioid Use. Follow up: Private Physician; When: 2 - 3 days; Reason: Recheck today's complaints, Continuance of care, Re-evaluation by your physician. Problem is new. Symptoms have improved. juvencio
--- NOTE | 2019-06-16 12:23 | ER ---
Nurse's Notes [facility] Name: Glenn Barboza Age: 69 yrs Sex: Male : 1950 Arrival Date: 06/16/2019 Time: 11:40 Bed 23 Private MD: Diagnosis: Puncture wound without foreign body of left upper arm-av fistula bleeding Presentation: 06/15 11:50 Chief complaint: EMS states: pt had 1.7 liters off at dialysis this morning, finished iw at 10 am, dialysis site wouldn't stop bleeding, clamps in place. Coronavirus screen: The patient has NOT traveled to a country currently being monitored by the [facility] within the last 14 days. Proceed with normal triage procedures. The patient has NOT had contact with any known and/or suspected case of coronavirus. Proceed with normal triage procedures. Ebola Screen: Patient negative for fever greater than or equal to 101.5 degrees Fahrenheit, and additional compatible Ebola Virus Disease symptoms Patient denies exposure to infectious person. Patient denies travel to an Ebola-affected area in the 21 days before illness onset. No symptoms or risks identified at this time. Initial Sepsis Screen: Does the patient meet any 2 criteria? No. Patient's initial sepsis screen is negative. Does the patient have a suspected source of infection? No. Patient's initial sepsis screen is negative. Risk Assessment: Do you want to hurt yourself or someone else? Patient reports no desire to harm self or others. 11:50 Method Of Arrival: EMS: [facility] iw 11:50 Acuity: TYSHAWN 3 iw 12:00 Onset of symptoms was June 16, 2019. vc Historical: - Allergies: 11:58 No Known Allergies; iw - Home Meds: 11:58 atorvastatin 80 mg oral tab 1 tab once daily [Active]; Vitamin D 125 mcg Oral daily iw [Active]; Vitamin B-12 Oral daily [Active]; furosemide 40 mg Oral tab 1 tab 2 times per day [Active]; Toprol XL 50 mg Oral Tb24 1 tab once daily [Active]; Levemir 100 unit/mL subcutaneous soln 16 unit [Active]; 12:02 levothyroxine 100 mcg tab 1 tab once daily [Active]; pantoprazole 40 mg oral TbEC 1 tab iw once daily [Active]; sevelamer HCl oral 800 mg oral 3 times per day [Active]; aspirin 81 mg Oral TbEC 1 tab once daily [Active]; ferrous sulfate 325 mg (65 mg iron) Oral TbEC three times a day [Active]; rifampin 300 mg Oral cap 2 times per day [Active]; terazosin 2 mg oral cap 1 cap once daily [Active]; - PMHx: 12:02 Diabetes; Hyperlipidemia; Hypertension; Renal Disease; Dialysis; iw - Immunization history:: Adult Immunizations up to date. - Social history:: Smoking status: Patient/guardian denies using tobacco. - Family history:: not pertinent. Screenin:11 Abuse screen: Denies threats or abuse. Denies injuries from another. Nutritional iw screening: No deficits noted. Tuberculosis screening: No symptoms or risk factors identified. Fall Risk None identified. Assessment: 12:08 General: Appears in no apparent distress. Behavior is calm, cooperative. Pain: Denies iw pain. Neuro: Level of Consciousness is awake, alert, obeys commands, Oriented to person, place, time, situation, Moves all extremities. Full function. Cardiovascular: Patient's skin is warm and dry. Dialysis shunt: in the left bicep, with palpable thrill, with auscultated bruit, with no erythema, with no edema, no bleeding noted clamps removed from dialysis shunt, no bleeding observed, 4X4s and jose luis bandage applied . Respiratory: Airway is patent. Derm: Skin is intact, is healthy with good turgor. Musculoskeletal: Range of motion: intact in all extremities. Vital Signs: 11:50 BP 165 / 65; Pulse 59; Resp 16; Temp 98.1; Pulse Ox 100% on R/A; iw 12:16 BP 166 / 66; Pulse 59; Resp 16; Pulse Ox 100% on R/A; Weight 96.62 kg; Height 5 ft. 11 vc in. (180.34 cm); Pain 0/10; 12:16 Body Mass Index 29.71 (96.62 kg, 180.34 cm) vc ED Course: 11:40 Patient arrived in ED. iw 11:55 Triage completed. iw 12:03 David Leonard MD is Attending Physician. juvencio 12:07 Heidi Leger RN is Primary Nurse. vc 12:07 Arm band placed on. iw 12:11 Patient has correct armband on for positive identification. iw 12:17 Dressings: 4X4s X 1; left bicep surgicell. vc 12:30 No provider procedures requiring assistance completed. Patient did not have IV access vc during this emergency room visit. Administered Medications: No medications were administered Outcome: 12: Discharge ordered by . juvencio 12: Discharged to home ambulatory, with family. vc 12:30 Condition: improved 12:30 Discharge instructions given to patient, Instructed on discharge instructions, follow up and referral plans. wound care, Demonstrated understanding of instructions, follow-up care, wound care. 12:31 Patient left the ED. vc Signatures: David Leonard MD MD cha Williams, Irene, RN RN Heidi Mak RN RN vc
[2019-06-16 12:36] VITALS: TEMP 98.1; O2SAT 100
[2019-06-16 12:37] VITALS: BP 166/66
== END 2019-06-16 12:31 | disposition home or self-care (01) ==
LOC: ER 11:36
DX: S41.132A Puncture wound without foreign body of left upper arm, initial encounter (principal); X58.XXXA Exposure to other specified factors, initial encounter; Z99.2 Dependence on renal dialysis; N28.9 Disorder of kidney and ureter, unspecified; E78.5 Hyperlipidemia, unspecified; E11.9 Type 2 diabetes mellitus without complications
CPT/HCPCS: 99283

== ENCOUNTER 2019-07-20 | Emergency (ER) | payer OTHER | END 2019-07-20 08:40 | disposition home or self-care (01) | CPT/HCPCS: 96365; 99284; S0077 ==

== ENCOUNTER 2019-11-01 09:27 | Emergency (ER) | payer OTHER ==
[2019-11-01] MEDS ORDERED: EPINEPHrine 1 MG/10 ML SYR IV ONE (09:28)
[2019-11-01] MEDS ORDERED: ATROPINE SULF 1 MG/10 ML SYR IV ONE (09:28)
--- NOTE | 2019-11-01 09:53 | ER ---
Nurse's Notes [facility] Name: Glenn Barboza Age: 69 yrs Sex: Male : 1950 Arrival Date: 11/01/2019 Time: 09:37 Bed 4 Private MD: Diagnosis: Cardiac arrest Presentation: 10/31 09:21 Chief complaint: EMS states: called out by center, stating that he was in their sv isolation room and was found unresponsive. Pt was shocked by staff, on EMS arrival pt was in Vfib, shocked, CPR resumed, and pt was PEA/asystole after the shocks. Epinephrine x 4, Sodium Bicarbonate x 1, Calcium chloride x 1 given. IO R leg. Pt intubated with a 6.5 ETT BS-82. CPR given by staff and EMS for about an hour SENIOR INTERNAL AUDITOR. Care prior to arrival: CPR via thumper performed by EMS was defibrillated and is still in progress IV initiated. in the left leg, IO Oxygen administered. via AMBU bag. Compressions began prior to arrival. 09:21 Method Of Arrival: EMS: [facility] sv 09:21 Acuity: TYSHAWN 1 sv 09:21 Coronavirus screen: unable to complete. Ebola Screen: Unable to complete the Ebola sv screening because: Patient is intubated. 09:21 Initial Sepsis Screen: Does the patient meet any 2 criteria? Temp <36.0*C (96.8*F)) or sv > 38.3*C (100.9*F). No. Patient's initial sepsis screen is negative. Does the patient have a suspected source of infection? No. Patient's initial sepsis screen is negative. 09:21 Onset of symptoms was November 01, 2019. sv 10:58 Risk Assessment: Do you want to hurt yourself or someone else? Unable to obtain. sv Historical: - Allergies: 10:10 No Known Drug Allergies; sv - PMHx: 10:10 Diabetes; Hyperlipidemia; Dialysis; M-W-F; Hypertension; Renal Disease; Hypothyroidism; sv Pacemaker; - PSHx: 10:10 Heart stents; Left upper arm fistula; sv - Immunization history:: Adult Immunizations unknown. - Social history:: Smoking status: unknown. - Family history:: not pertinent. - Hospitalizations: : No recent hospitalization is reported. Screenin:57 Abuse screen: unable to complete. Nutritional screening: unable to complete . sv Tuberculosis screening: unable to complete . Assessment: 09:21 CPR assessment: unresponsive, no respiratory effort, intubated, mechanical ventilation. sv Cardiac rhythm is PEA. General: Behavior is unresponsive. Neuro: Level of Consciousness is unresponsive. Cardiovascular: Rhythm is PEA. Respiratory: Airway via oral intubation Ventilator assessment: ET Tube: 6.5. 09:25 Reassessment: CPR paused, PEA, CPR resumed. sv 09:28 Reassessment: CPR paused, PEA, CPR resumed. sv 09:31 Reassessment: CPR paused, PEA, CPR resumed. sv 09:34 Reassessment: CPR paused, PEA, US at the bedside for Dr Guillory. sv 09:37 Reassessment: CPR paused, PEA, US being used by Dr Guillory. sv 09:39 Reassessment: Time of pronounced by Dr Guillory. sv 10:10 Reassessment: CHRIS here at the bedside, stated that a grey goods marker would be on the way. sv 10:34 Reassessment: [facility] called and spoke with Leandra Nguyen, pt is not a candidate. sv Case #[id number]. 10:58 Reassessment: Judge Dasilva at the bedside, family to decide which assisted. Pt not sv going to the [place]. 11:54 Reassessment: [facility] in [place], [place] contacted per pt's son request ([address]). 12:39 Reassessment: [facility] home here to take the pt. sv Vital Signs: 09:45 Temp 96(R); sv ED Course: 09:21 Bed in low position. pin ball machine mechanic on. Pulse ox on. NIBP on. [facility]. sv 09:21 Patient placed in an exam room. sv 09:21 Maintain EMS IV. Dressing intact. Site clean \T\ dry. Gauge \T\ site: L leg IO. sv 09:25 Inserted saline lock: 20 gauge in right upper arm, using aseptic technique. ,using sv aseptic technique. started by Sarah BE. 09:30 Arm band placed on. sv 09:37 Patient arrived in ED. bd 09:42 Stephane Guillory MD is Attending Physician. rn 09:50 notified coral holguin to have memorial counselor substation operator transforming come to er. bd 09:51 Stephane Guillory MD is Pronouncing Provider. rn 09:56 Jen Barrera RN is Primary Nurse. sv 10:50 Triage completed. sv 12:39 No provider procedures requiring assistance completed. intact. sv 11/01 09:33 Attending Physician role handed off by Stephane Guillory MD sv Administered Medications: 10/31 09:21 Drug: EPINEPHrine 0.1mg/mL 1:10,000 1 mg Route: IVP; Site: Other; sv 10:00 Follow up: Response: No adverse reaction sv 09:24 Drug: Sodium Bicarbonate 1 amp Route: IVP; Site: Other; sv 10:00 Follow up: Response: No adverse reaction sv 09:26 Drug: EPINEPHrine 0.1mg/mL 1:10,000 1 mg Route: IVP; Site: Other; sv 10:00 Follow up: Response: No adverse reaction sv 09:29 Drug: EPINEPHrine 0.1mg/mL 1:10,000 1 mg Route: IVP; Site: Other; sv 10:00 Follow up: Response: No adverse reaction sv 09:34 Drug: Atropine 1 mg Route: IVP; Site: Other; sv 10:00 Follow up: Response: No adverse reaction sv 09:37 Drug: Atropine 1 mg Route: IVP; Site: Other; sv 10:00 Follow up: Response: No adverse reaction sv 09:38 Drug: EPINEPHrine 0.1mg/mL 1:10,000 1 mg Route: IVP; Site: Other; sv 10:00 Follow up: Response: No adverse reaction sv Outcome: 09:39 Outcome Patient sv 09:39 Patient : Time of 09:39 Pronounced by Stephane Guillory MD Body to home. 09:39 Condition: 12:39 Patient left the ED. sv 12:39 Patient left the ED. sv Signatures: Lucy Velázquez Stephanie, RN RN Stephane Avila MD MD rn Calderon, Audri, RN RN [id number] Corrections: (The following items were deleted from the chart) 11/01 09:35 09:34 Patient left the ED. sv sv
--- NOTE | 2019-11-01 09:53 | EDPHYS ---
Physician Documentation [facility] Name: Glenn Barboza Age: 69 yrs Sex: Male : 1950 Arrival Date: 11/01/2019 Time: 09:37 Bed 4 Private MD: ED Physician HPI: 10/31 09:46 This 69 yrs old Male presents to ER via Unassigned with complaints of CPR. rn 09:46 Preceding the arrest, the patient collapsed. The arrest occurred at a dialysis center. rn Pre-hospital course: The arrest was witnessed Bystanders at the scene performed CPR. ACLS details: Initial rhythm was V-fib. The presenting rhythm is PEA. Airway: oral intubation, Medications given by EMS prior to arrival - Epinephrine IV x 4 doses, Defibrillated X 2, Response to therapy: continued arrest. It is unknown whether or not the patient has had similar symptoms in the past. Per EMS, collapsed/found down at dialysis center, unsure if even started dialysis, was found in isolation room, initial rhythm Vfib, shocked twice, PEA since then, intubated in field, IO established. Total ACLS time about an hour prior to arrival. . Historical: - Allergies: 10:10 No Known Drug Allergies; sv - PMHx: 10:10 Diabetes; Hyperlipidemia; Dialysis; M-W-F; Hypertension; Renal Disease; Hypothyroidism; sv Pacemaker; - PSHx: 10:10 Heart stents; Left upper arm fistula; sv - Immunization history:: Adult Immunizations unknown. - Social history:: Smoking status: unknown. - Family history:: not pertinent. - Hospitalizations: : No recent hospitalization is reported. ROS: 09:46 Unable to obtain ROS due to comatose state. rn Exam: 09:46 Constitutional: This is a well developed, well nourished patient GCS 3, intubated, rn unresponsive Head/Face: Normocephalic, atraumatic. Eyes: Pupils fixed and dilated, equal ENT: + oral intubation, blood in OP Chest/axilla: Pacemaker right outer chest Cardiovascular: No palpable pulse Respiratory: Coarse bilateral breath sounds with bagging, no spont breaths Abdomen/GI: distended, no evidence of trauma MS/ Extremity: NO palpable pulse Neuro: GCS 3 Vital Signs: 09:45 Temp 96(R); sv Procedures: 09:46 CPR: See CPR flow sheet. Initial patient assessment: unresponsive, pupils fixed \T\ rn dilated, no respiratory effort, intubated, pulses present w/ compressions, The presenting cardiac rhythm is PEA. the patient was intubated prior to arrival, Compressions: began prior to arrival. Meds given: See Meds list. Atropine X 2, Epinephrine X 3, despite ED evaluation and treatment, the patient . CPR was stopped at 09:39. MDM: 09:42 Patient medically screened. rn 09:46 Differential diagnosis: arrythmia, cardiac arrest, respiratory arrest. Data reviewed: rn vital signs, nurses notes. 11/01 09:34 Order name: glucometer results - FOR PT WITH NO ID sv Administered Medications: 09:21 Drug: EPINEPHrine 0.1mg/mL 1:10,000 1 mg Route: IVP; Site: Other; sv 10:00 Follow up: Response: No adverse reaction sv 09:24 Drug: Sodium Bicarbonate 1 amp Route: IVP; Site: Other; sv 10:00 Follow up: Response: No adverse reaction sv 09:26 Drug: EPINEPHrine 0.1mg/mL 1:10,000 1 mg Route: IVP; Site: Other; sv 10:00 Follow up: Response: No adverse reaction sv 09:29 Drug: EPINEPHrine 0.1mg/mL 1:10,000 1 mg Route: IVP; Site: Other; sv 10:00 Follow up: Response: No adverse reaction sv 09:34 Drug: Atropine 1 mg Route: IVP; Site: Other; sv 10:00 Follow up: Response: No adverse reaction sv 09:37 Drug: Atropine 1 mg Route: IVP; Site: Other; sv 10:00 Follow up: Response: No adverse reaction sv 09:38 Drug: EPINEPHrine 0.1mg/mL 1:10,000 1 mg Route: IVP; Site: Other; sv 10:00 Follow up: Response: No adverse reaction sv Disposition: 09:46 . rn Disposition: Patient pronounced on 11/01/19 09:39 by Stephane Guillory. Impression: Cardiac arrest. - Released to Home. Signatures: Dispatcher [employer] Jen Mendez RN RN Stephane Guillory MD MD furniture designer: (The following items were deleted from the chart) 12:39 09:52 11/01/2019 09:52 Patient pronounced on 11/01/2019 at 09:39 by Stephane Guillory. sv Impression: Cardiac arrest. Released to Home. rn 11/01 09:34 10/31 12:39 11/01/2019 09:52 Patient pronounced on 11/01/2019 at 09:39 by Stephane Guillory. sv Impression: Cardiac arrest. Released to Home. sv
--- OUTSIDE RECORDS SUMMARY | 2019-11-01 11:28 | XMS REPORT | Continuity of Care Document ---
:1950 Author Organization [facility] t Address [address] [place] [address] Care Team Providers Name Role Phone Arminda Stokes DO Primary Care Physician Ebrahim BOWLING TEACHER Attending Clinician Lab, Fam Pob I Attending Clinician Unavailable VIOLETTE-KETAN Attending Clinician Unavailable VASCULAR Attending Clinician Unavailable MH Attending Clinician Unavailable ORGANTRANSPLANT Attending Clinician Unavailable LIZO Attending Clinician Unavailable Problems Condition Condition Condition Status Onset Resolution Last Treating Co mments Source Name Details Category Date Date Treatment Clinician Date Heart Heart Disease Active [place] block block 2-18 Methodi 00:00: st 00 Type 2 Type 2 Disease Active [place] diabetes diabetes 8-07 Method i mellitus mellitus 00:00: st with with 00 chronic chronic kidney kidney disease on disease on chronic chronic dialysis, dialysis, with with long-term long-term current current use of use of insulin insulin End stage End stage Disease Active Overview: [place] renal renal 7-19 Added Methodi disease disease 00:00: automatic st 00 ally from request for surgery [id number] ESRD (end ESRD (end Disease Active Last Avel ston stage stage 5-01 Assessmen Methodi renal renal 00:00: t & Plan: st disease) disease) 00 N.Patient 2018 MWF 2018 MWF with access needs. We gave the patient our kidney failure informati on sheet and discussed with them in general transplan t vs. PD vs. hemodialy sis. We discussed catheters vs. grafts vs. fistulas and used the informati onal posters to better explain the differenc es. We explained our general preferenc e for fistulas because of decreased infection s and increased longevity . We discussed operative complicat ions including bleeding, thrombosi s, failure of the access, swelling, steal syndrome, and need for additiona l procedure s.Vein mapping reviewed by me. Plan for L arm AVF. Hypertensi Hypertensi Disease Active [place] on 08-10 Methodi 00:00: st 00 Bradycardi Bradycardi Disease Active Overview : [place] a a 08-10 heart Methodi 00:00: rate in st 00 40- 50s Hypothyroi Hypothyroi Disease Active [place] dism dism 08-10 Methodi 00:00: st 00 History of History of Problem Resolve [facility] cardiac cardiac d [place] [facility] [place] of History of Problem Resolve [facility] essential essential d ity of hypertens[place]ens[place] ans History of History of Problem Resolve Univers hyperlipid hyperlipid d it y of [place] [facility] ans History of History of Problem Resolve Univers Type 2 Type 2 d ity of diabetes diabetes [place] mellitus mellitus Physic i without without ans complicati complicati on, with on, with long-term long-term current current use of use of insulin insulin Carotid Carotid Problem Active Univers artery artery ity of stenosis stenosis [place] [facility] ans Postop Postop Problem Active Univers carotid carotid ity of endarterec endarterec [place] ef[place] Physici surveillan surveillan an s ce, ce, encounter encounter for for Allergies, Adverse Reactions, Alerts This patient has no known allergies or adverse reactions. Social History Social Habit Start Date Stop Date Quantity Comments Source History of tobacco Current smoker Chay briggs [facility] use Sex Assigned At [facility] ethodist Cigarettes smoked 2018-06-03 2018-06-03 Blanco Rodriguezist current (pack per 00:00:00 00:00:00 day) - Reported Cigarette 2018-06-03 2018-06-03 Blanco Rodriguez ist pack-years 00:00:00 00:00:00 Alcohol intake 2018-06-03 2018-06-03 Current [facility] thodist 00:00:00 00:00:00 non-drinker of alcohol (finding) Tobacco Comment 2015-09-23 2015-09-23 quit 1988 Blanco Smith ethodist 00:00:00 00:00:00 Alcohol Comment 2015-09-23 2015-09-23 quit 5-6 yrs ago Avel Bee 00:00:00 00:00:00 Smoking Status Start Date Stop Date Source Former smoker 2018-06-03 00:00:00 2018-06-03 00:00:00 Blanco Bee Medications Ordered Filled Start Stop Current Ordering Indication Dosage Frequency Signature Comments Components Source Medication Medication Date Date Medication? Clinician (SIG) Name Name furosemide Yes 40mg Q.5D Take 40 mg [place] (LASIX) 40 2-20 by mouth 2 Met hodi MG tablet 15:23: (two) st 43 times a day. VIT D3-VIT Yes 1{tbl} Take 1 Avel light K-BERBERINE 2-20 tablet by Met hodi -HOPS ORAL 15:23: mouth st 43 daily. levothyroxi Yes 100ug QD Take 100 [place] ne 2-20 mcg by Methodi (SYNTHROID, 15:23: mouth st LEVOTHROID) 43 every 100 MCG morning. tablet atorvastati Yes 80mg QD Take 80 mg Blanco n (LIPITOR) 2-20 by mouth Meth rhonda 80 MG 15:23: daily. st tablet 43 terazosin Yes 5mg QD Take 5 mg Avel light (HYTRIN) 5 2-20 by mouth Metho di MG capsule 15:23: nightly. st 43 metoprolol Yes 25mg QD Take 25 mg [place] succinate 2-20 by mouth Method i XL 15:23: nightly. st (TOPROL-XL) 43 25 mg 24 hr tablet pantoprazol Yes 40mg QD Take 40 mg [place] e 2-20 by mouth Methodi (PROTONIX) 15:23: daily. st 40 MG EC 43 tablet calcitriol 2018-0 Yes .25ug QD Take 0.25 [place] (ROCALTROL) 2-20 mcg by Method i 0.25 MCG 15:23: mouth st capsule 43 daily. Given in dialysis sevelamer 2018-0 Yes 800mg [id number] Take 800 [place] (RENVELA) 2-20 [id number] mg by Met hodi 800 mg 15:23: 3D mouth 3 st tablet 43 (three) times a day with meals. insulin 2018- Yes 16U QD Inject 16 [place] detemir 2-20 Units Methodi U-100 15:23: under the st (LEVEMIR) 43 skin 100 unit/mL nightly. injection colchicine 2018- Yes .6mg QD Take 0.6 Avel ston 0.6 mg 2-20 mg by Methodi tablet 15:23: mouth st 43 daily. cycloSPORIN 2018- Yes 1[drp] Q.5D Administer [place] E 2-20 1 drop to Methodi (RESTASIS) 15:23: both eyes st 0.05 % 43 2 (two) ophthalmic times a emulsion day. ferrous 2018- Yes 325mg Take 325 [place] sulfate 325 2-20 mg by Methodi (65 FE) MG 15:23: mouth Once s t tablet 43 in dialysis. Vitamin D3 Vitamin D3 Yes Uni vers TABS TABS ity of [place] Physici ans Atorvastati Atorvastati Yes U nivers n Calcium n Calcium ity o f TABS TABS [place] [facility] Colchicine Colchicine Yes Uni vers 0.6 MG Oral 0.6 MG Oral i ty of Capsule Capsule [place] [facility] Furosemide Furosemide Yes Uni vers TABS TABS ity of [place] Physici ans Levothyroxi Levothyroxi Yes U nivers ne Sodium ne Sodium ity o f TABS TABS [place] [facility]ici ans Metoprolol Metoprolol Yes Uni vers Tartrate 25 Tartrate 25 i ty of MG Oral MG Oral [place] Tablet Tablet Physici ans Pantoprazol Pantoprazol Yes U nivers e Sodium 40 e Sodium 40 i ty of MG Oral MG Oral [place] Tablet Tablet Physici Delayed Delayed ans Release Release Restasis Restasis Yes Univers 0.05 % 0.05 % ity of Ophthalmic Ophthalmic Gal as Emulsion Emulsion Physici ans Terazosin Terazosin Yes Unive rs HCl - 5 MG HCl - 5 MG ity of Oral Oral [place] Capsule Capsule Physici ans Renvela 800 Renvela 800 Yes U nivers MG Oral MG Oral ity of Tablet Tablet [place] [facility]ici ans Levemir Levemir Yes Univers SOLN SOLN ity of [place] [facility]ici ans Procedures Procedure Date / Time Performed Performing Clinician Sourc e CVRAD - Bilateral 2019-01-24 00:00:00 [facility] Carotid Duplex - 44602 Physician s History of Toe [facility] amputation Physicians History of Hernia [facility] Repair Physicians History of Pacemaker [facility] Placement Physicians [facility] Autogenous Graft Plan of Care Planned Activity Planned Date Details Comments Source Future Scheduled 2019-11-11 INFLUENZA VACCINE [place] [facility] Test 00:00:00 [code = INFLUENZA VACCINE] Future Scheduled 2014 65+ PNEUMOCOCCAL [place] [facility] Test 00:00:00 VACCINE (1 of 2 - PCV13) [code = 65+ PNEUMOCOCCAL VACCINE (1 of 2 - PCV13)] Future Scheduled 1999 [facility] SCREENING [facility] Test 00:00:00 [code = COLONOSCOPY SCREENING] Future Scheduled 1999 SHINGLES VACCINES (#1) [place] [facility] Test 00:00:00 [code = SHINGLES VACCINES (#1)] Future Scheduled 1959 DIABETIC FOOT EXAM [place] [facility] Test 00:00:00 [code = DIABETIC FOOT EXAM] Future Scheduled 1950 DIABETIC RETINAL EYE Avel ston [facility] Test 00:00:00 EXAM [code = DIABETIC RETINAL EYE EXAM] Encounters Start End Encounter Admission Attending Care Care Encounter Source Date/Time Date/Time Type Type Clinicians Facility Department ID 2019-08-31 Outpatient [facility] [id number] [facility] 09:58:29 2018-08-30 Inpatient [facility] 9[address] [facility] H 08:23:02 2019-09-16 2019-09-16 Telephone Eblucho, RUST [id number] 00:00:00 00:00:00 [facility] [id number] [place] [id number] [facility] [id number] Primary & 370 Specialty Care 2019-09-15 2019-09-15 Wind Technician Lab, Adc RUST [id number] 11:02:23 11:23:44 Visit [facility] [id number] [place] [id number] [facility] [id number] nal [address] 2019-06-06 2019-06-06 Outpatient [id number] 11:17:00 11:17:00 2019-03-30 2019-03-30 Outpatient [facility] PUL [id number] [facility] 14:11:00 14:11:00 2019-03-14 2019-03-14 Outpatient [facility] CAR [id number] [facility] 06:23:00 06:23:00 2019-02-21 2019-02-21 Outpatient [facility] CAR [id number] [facility] 10:06:00 10:06:00 2019-02-21 2019-02-21 Outpatient [facility] [id number] [facility] 08:13:00 08:13:00 2019-01-24 2019-01-24 Appointmen VIOLETTE-REJI UTP Cardiothora [id number] Univers 10:30:00 10:30:00 t; W, cic & ity of ARY BRAGA Vascular T jason LAWSON M.D. Surgery - Physic [facility] 2019-01-24 2019-01-24 Appointmen VASCULAR, UTP UTP [id number] Univers 08:30:00 08:30:00 t; [facility] ity of VASCULAR, [facility] Physici ans 2019-01-19 2019-01-19 Outpatient MHH [facility]H [id number] [facility] 06:36:00 06:36:00 2019-01-05 2019-01-05 Appointmen MHH, GASTRO UTP UTP [id number] Univers 13:00:00 13:00:00 t; [facility], ity of GASTRO [place] Physici ans 2019-01-05 2019-01-05 Outpatient MHH MHHH [id number] MHH 10:45:00 10:45:00 2018-12-29 2018-12-29 Appointmen ORGANTRANSP UTP UTP [id number] Univers 07:30:00 07:30:00 t; LANT, OP ity o f ORGANTRANS [place] PLANT, OP Physic i ans 2018-12-29 2018-12-29 Outpatient [facility] CAR [id number] [facility] 07:20:00 07:20:00 2018-12-21 2018-12-21 Outpatient [facility] CAR [id number] [facility] 12:04:00 12:04:00 2018-11-01 2018-11-01 Outpatient [facility] PUL [id number] [facility] 10:56:00 10:56:00 2018-11-01 2018-11-01 SHADY Beckham UTP [id number] Univers 09:00:00 09:00:00 t; Hilary TEJEDA M.D. [place] VICTOR, Physici M.D. [facility] 2018-11-01 2018-11-01 Outpatient M[facility] MHHH [id number] [facility] 08:39:00 08:39:00 2018-10-04 2018-10-04 SHADY Beckham UTP [id number] Univers 09:00:00 09:00:00 t; Hilary TEJEDA M.D. [place] VICTOR, Physici M.D. [facility] 2018-10-03 2018-10-03 Inpatient E [facility] MHHH [id number] [facility] 19:01:00 19:01:00 2018-09-28 2018-09-28 Outpatient [facility] MHHH [id number] [facility] 05:38:00 05:38:00 2018-09-15 2018-09-15 Outpatient M[facility] MHHH [id number] [facility] 09:06:00 09:06:00 2018-09-08 2018-09-08 Reagan CARUSO UTP [id number] Univers 11:15:00 11:15:00 t; Nathan [place] [facility], M.[place]. Physici KRISTOFER, ans M.D. 2018-09-08 2018-09-08 Outpatient [facility] MHHH [id number] [facility] 07:46:00 07:46:00 2018-08-02 2018-08-02 Outpatient [facility] M[facility]H [id number] [facility] 07:33:00 07:33:00 Results This patient has no known results.
--- OUTSIDE RECORDS SUMMARY | 2019-11-01 11:28 | XMS REPORT | Clinical Summary ---
:1950 Author Organization [facility] Address [address] [place] [address] Care Team Providers Name Role Phone Arminda Stokes DO Primary Care Provider Allergies Active Allergy Reactions Severity Noted Date Comments No Known Drug Allergies 08/25/2015 Medications Medication Sig Dispensed Refills Start Date End Date Status furosemide (LASIX) 40 Take 40 mg by 0 Active MG tablet mouth 2 (two) times a day. VIT D3-VIT Take 1 tablet by 0 Ac tive D-AWYRPORAE-MRMY ORAL mouth daily. levothyroxine Take 100 mcg by 0 Active (SYNTHROID, mouth every LEVOTHROID) 100 MCG morning. tablet atorvastatin (LIPITOR) Take 80 mg by 0 Active 80 MG tablet mouth daily. terazosin (HYTRIN) 5 Take 5 mg by mouth 0 Active MG capsule nightly. metoprolol succinate Take 25 mg by 0 Active XL (TOPROL-XL) 25 mg mouth nightly. 24 hr tablet pantoprazole Take 40 mg by 0 Act travis (PROTONIX) 40 MG EC mouth daily. tablet calcitriol (ROCALTROL) Take 0.25 mcg by 0 Active 0.25 MCG capsule mouth daily. Given in dialysis sevelamer (RENVELA) Take 800 mg by 0 Active 800 mg tablet mouth 3 (three) times a day with meals. insulin detemir U-100 Inject 16 Units 0 Active (LEVEMIR) 100 unit/mL under the skin injection nightly. colchicine 0.6 mg Take 0.6 mg by 0 Active tablet mouth daily. cycloSPORINE Administer 1 drop 0 Active (RESTASIS) 0.05 % to both eyes 2 ophthalmic emulsion (two) times a day. ferrous sulfate 325 Take 325 mg by 0 Active (65 FE) MG tablet mouth Once in dialysis. 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 We discussed operative complications including bleeding, throm bosis, failure of the access, swelling, steal syndrome, and need for additional procedures. Vein mapping reviewed by me. Plan for L arm AVF. Hypertension 08/10/2017 Bradycardia 08/10/2017 Overview: heart rate in 40- 50s Hypothyroidism 08/10/2017 Social History Tobacco Use Types Packs/Day Years [...] travel history available. Last Filed Vital Signs Not on file Plan of Treatment Health Maintenance Due Date Last Done Comments DIABETIC RETINAL EYE EXAM 1950 DIABETIC FOOT EXAM 1959 COLONOSCOPY SCREENING 1999 SHINGLES VACCINES (#1) 1999 65+ PNEUMOCOCCAL VACCINE (1 of 2 - PCV13) 2014 INFLUENZA VACCINE 11/11/2019 Implants Implanted Type Area Tooling Engineer Device Shelf Model / Identifier Expiration Serial / Date Lot Kimmie Xt Mri - [id number] Cardiac Pacemaker N/A: N/A [employer] CRM [id number] / Implanted: Qty: 1 on 05/31/2018 by Bhupendra Shelton Jr., M D at [facility] Generators [employer] / Lead, Bipolar Active Fixation Atrial Eulalio roid Eluting 45 Cm Capsure Fix Novus System - [id number] - [id number] Cardiac Pacing N/A: N/A [employer] [facility] 03/21/2020 [id number] / Implanted: Qty: 1 on 05/31/2018 by Bhupendra Shelton Jr., M D at [facility] Leads or [place] [id number] / Electrodes or [id number] Accessories Lead, Pacemaker Bipolar Fix Forming Atri al And Ventricular Steroid Eluting 52 Centimeter Capsure Fix Novus - [id number] - [id number] Cardiac Pacing N/A: N/A [employer] [facility] 02/05/2020 [id number] / Implanted: Qty: 1 on 05/31/2018 by Bhupendra Shelton Jr., M D at [facility] Leads or [employer] [id number] / Electrodes or [id number] Accessories Envelope Pcemkr Antbactl Fully Resorb Aigisrxr - [id number] Cardiovascular N/A: N/A [employer] [id number] / Implanted: 05/31/2018 at [facility] (Quantity not on file) Implants / Clip Ligtng Weck Hemoclip Plus W/ Tape Ti Med - [id number] M edical Clips for Left: TELEFLEX 04/06/2022 [id number] / Implanted: Qty: 1 on 09/09/2017 by Juvenal Klein MD at [facility] Internal Use Arm, MEDICAL / [facility] [id number] Clip Ligtng Weck Hemoclip Plus W/ Tape Ti Sm - [id number] Me dical Clips for Left: WECK CLOSURE 05/03/2022 [id number] / Implanted: Qty: 2 on 09/09/2017 by Juvenal Klein MD at [facility] Internal Use Arm, SYSTEMS / Upper 05/03/2022 Clip Ligtng Weck Hemoclip Plus W/ Tape Ti Sm - [id number] Me dical Clips for Left: WECK CLOSURE 05/03/2022 [id number] / Implanted: Qty: 2 on 12/09/2017 by Juvenal Klein MD at [facility] Internal Use Arm, SYSTEMS / [facility] [id number] Clip Ligtng Weck Hemoclip Plus W/ Tape Ti Med - [id number] M edical Clips for Left: TELEFLEX 09/28/2022 [id number] / Implanted: Qty: 2 on 12/09/2017 by Juvenal Klein MD at [facility] Internal Use Arm, MEDICAL / Upper [id number] Results Not on fileafter 10/31/2018 Insurance Payer Benefit Plan / Subscriber ID Effective Dates Phone Addre ss Type Group MEDICARE MEDICARE PART A AND xxxxxxxxxx 2014-Daniel [place] Medicare B t AETNA AETNA [employer] xxxxxxxxx 2002-Prese Indemnity INDEMNITY nt Advance Directives For more information, please contact: [phone] Type Date Recorded Patient Insurance Account Manager Explanati on Advance Directives, Living 03/27/2014 6:05 AM Will and Medical Power of Knife Glazer Code Status Date Activated Date Inactivated Comments Full Code 05/30/2018 9:28 PM 06/01/2018 7:23 PM Code Status decision reached by: Patient
[2019-11-01 20:49] VITALS: TEMP 96
== END 2019-11-02 09:34 | disposition expired ==
LOC: ER 09:27
DX: I46.9 Cardiac arrest, cause unspecified (principal); E11.22 Type 2 diabetes mellitus with diabetic chronic kidney disease; I12.0 Hypertensive chronic kidney disease with stage 5 chronic kidney disease or end stage renal disease; N18.6 End stage renal disease; Z99.2 Dependence on renal dialysis; Z95.818 Presence of other cardiac implants and grafts
CPT/HCPCS: 36415; 82947; 96375; 96374; 92950; 99285; J0171